=== PATIENT | male | born 1960 | race Caucasian/White ===

== ENCOUNTER 2018-03-16 17:04 | Inpatient (IN) | payer BC ==
[~2018-03-16] VITALS: Ht 175.3 cm; Wt 104.7 kg
--- NOTE | ~2018-03-16 | DS ---
PATIENT:JANI TREJO :64 MEDICAL RECORD: [id number] DISCHARGE SUMMARY ADMISSION DATE: 03/16/18 DISCHARGE DATE: 03/21/18 DATE OF ADMISSION: 03/16/2018 DATE OF DISCHARGE: 03/21/2018 ADMISSION DIAGNOSES: Severe hyponatremia, acute bronchitis, cough. DISCHARGE DIAGNOSIS: Severe hyponatremia. CONSULTS: Dr. Darrell Hilliard, nephrology. HOSPITAL COURSE: The patient was admitted, gradual correction of his hyponatremia, continues to improve. Medications adjusted that may have been contributory to his severe hyponatremia. The patient is feeling much better. He is anxious to go home. His sodium is improved from 115-125. He is discharged home in significantly improved condition. DISCHARGE MEDICATIONS: Per med rec, will follow up with Dr. Noyola next week. PHYSICAL EXAMINATION: VITAL SIGNS ON DISCHARGE: Temperature 97.5, blood pressure is 157/80, heart rate 69, respirations 20, O2 sats 96% on room air. GENERAL: Alert and oriented. Again, anxious to go home. HEART: Regular rate and rhythm. LUNGS: Clear. ABDOMEN: Soft. FOLLOWUP: Will follow up with Dr. Noyola next week. DISCHARGE INSTRUCTIONS: The patient will follow up with nephrology as scheduled. Agree with his input and appreciate nephrology. TRANSINT:[id number] Voice Confirmation ID: [id number] DOCUMENT ID: [id number] PRAMOD CERDA DO at 1030 CC: [id number] DICTATION DATE: 03/21/18 1259 WEAVER NARROW FABRICS: 03/22/18 0327 DIS IN 03/21/18 [address] [place] [address]
[2018-03-16] MEDS ORDERED: GLUCOPHAGE500 MG (17:09)
[2018-03-16] MEDS ORDERED: BLOOD PRESSURE PILL (17:09)
[2018-03-16 17:26] LABS: BASOPHILS 0.2 % (0-2); EOSINOPHILS 0.8 % (0-7); HEMATOCRIT 40.6 % (42.0-54.0); HEMOGLOBIN 15.2 g/dL (13.5-17.5); IMMATURE GRANULOCYTES 0.6 % (0-5); LYMPHOCYTES 22.5 % (15-50); MCH 30.1 pg (26.0-34.0); MCHC 37.4 g/dL (31.0-37.0); MCV 80.4 fL (80.0-100.0); MEAN PLATELET VOLUME 8.3 fL (7.4-10.4); MONOCYTES 7.4 % (2-11); NEUTROPHILS 68.5 % (40-80); PLATELET COUNT 226 10x3/uL (130-400); RBC 5.05 10x6/uL (4.20-6.10); RDW 12.8 % (11.5-14.5); WBC 9.7 10x3/uL (4.8-10.8)
[2018-03-16 17:44] LABS: ALBUMIN 3.9 g/dL (3.4-5.0); ALKALINE PHOSPHATASE 69 U/L (46-116); ALT (SGPT) 27 U/L (10-68); BILIRUBIN - TOTAL 0.22 mg/dL (0.2-1.3); CALCIUM 8.8 mg/dL (8.5-10.1); CARBON DIOXIDE 24.8 mmol/L (21.0-32.0); CREATININE - SERUM 0.8 mg/dL (0.6-1.3); GLUCOSE 114 mg/dL (74-106); POTASSIUM - SERUM 4.2 mmol/L (3.5-5.1); PROTEIN - SERUM 7.1 g/dL (6.4-8.2); UREA NITROGEN 11 mg/dL (7-18); eGFR NON AFRICAN AMERICAN > 90 mL/min (90-120)
[2018-03-16 17:45] LABS: CALC OSMOLALITY 232 mosm/kg (275-300)
[2018-03-16 17:46] LABS: SODIUM 115 mmol/L (136-145)
[2018-03-16 17:47] LABS: CHLORIDE - SERUM 82 mmol/L (98-107)
[2018-03-16] MEDS ORDERED: LISINOPRIL10 MG PO (21:18)
[2018-03-16] MEDS ORDERED: LISINOP/HCTZ TAB 10- (21:19)
[2018-03-16] MEDS ORDERED: PRANDIN1 MG PO (21:21)
[2018-03-16 21:24] VITALS: BP 125/66
[2018-03-16 22:52] VITALS: Ht 175.3 cm; Wt 104.7 kg
[2018-03-17] VITALS: BP 128/60
[2018-03-17 04:31] LABS: BASOPHILS 0.1 % (0-2); EOSINOPHILS 1.5 % (0-7); HEMATOCRIT 38.1 % (42.0-54.0); IMMATURE GRANULOCYTES 0.5 % (0-5); LYMPHOCYTES 32.2 % (15-50); MCH 29.7 pg (26.0-34.0); MCHC 36.7 g/dL (31.0-37.0); MCV 80.7 fL (80.0-100.0); MEAN PLATELET VOLUME 8.6 fL (7.4-10.4); NEUTROPHILS 55.7 % (40-80); PLATELET COUNT 235 10x3/uL (130-400); RBC 4.72 10x6/uL (4.20-6.10); RDW 12.9 % (11.5-14.5); WBC 8.2 10x3/uL (4.8-10.8)
[2018-03-17 04:44] VITALS: BP 155/74
[2018-03-17 04:57] LABS: ALBUMIN 3.3 g/dL (3.4-5.0); ALKALINE PHOSPHATASE 63 U/L (46-116); ALT (SGPT) 24 U/L (10-68); BILIRUBIN - TOTAL 0.22 mg/dL (0.2-1.3); CALCIUM 7.9 mg/dL (8.5-10.1); CARBON DIOXIDE 24.8 mmol/L (21.0-32.0); CREATININE - SERUM 0.7 mg/dL (0.6-1.3); GLUCOSE 93 mg/dL (74-106); POTASSIUM - SERUM 4.1 mmol/L (3.5-5.1); PROTEIN - SERUM 6.2 g/dL (6.4-8.2); eGFR NON AFRICAN AMERICAN > 90 mL/min (90-120)
[2018-03-17 05:12] LABS: CALC OSMOLALITY 234 mosm/kg (275-300); UREA NITROGEN 8 mg/dL (7-18)
[2018-03-17 05:14] LABS: CHLORIDE - SERUM 85 mmol/L (98-107); SODIUM 117 mmol/L (136-145)
[2018-03-17 07:30] VITALS: BP 145/76
[2018-03-17 11:00] VITALS: BP 162/86
[2018-03-17 14:19] LABS: CALCIUM 7.8 mg/dL (8.5-10.1); CREATININE - SERUM 0.7 mg/dL (0.6-1.3); POTASSIUM - SERUM 4.7 mmol/L (3.5-5.1); UREA NITROGEN 8 mg/dL (7-18); eGFR NON AFRICAN AMERICAN > 90 mL/min (90-120)
[2018-03-17 14:20] LABS: CALC OSMOLALITY 239 mosm/kg (275-300); GLUCOSE 225 mg/dL (74-106)
[2018-03-17 14:24] LABS: SODIUM 116 mmol/L (136-145)
[2018-03-17 14:25] LABS: CHLORIDE - SERUM 85 mmol/L (98-107)
[2018-03-17 15:00] VITALS: BP 147/80
[2018-03-17 17:08] LABS: CREATININE - URINE 51.4 mg/dL (30-125); PRO/CRE RATIO URINE 0.2 mg/g; PROTEIN - URINE 7.9 mg/dL (0.0-11.9)
[2018-03-17 17:25] LABS: APPEARANCE CLEAR (CLEAR); BILIRUBIN NEGATIVE (NEGATIVE); COLOR YELLOW (YELLOW); GLUCOSE NEGATIVE (NEGATIVE); KETONE NEGATIVE (NEGATIVE); NITRITE NEGATIVE (NEGATIVE); PROTEIN NEGATIVE (NEGATIVE); UROBILINOGEN NORMAL (NORMAL)
[2018-03-17 18:40] LABS: CALC OSMOLALITY 234 mosm/kg (275-300); CALCIUM 7.7 mg/dL (8.5-10.1); CARBON DIOXIDE 23.2 mmol/L (21.0-32.0); CHLORIDE - SERUM 87 mmol/L (98-107); CREATININE - SERUM 0.6 mg/dL (0.6-1.3); GLUCOSE 208 mg/dL (74-106); POTASSIUM - SERUM 4.1 mmol/L (3.5-5.1); UREA NITROGEN 8 mg/dL (7-18); eGFR NON AFRICAN AMERICAN > 90 mL/min (90-120)
[2018-03-17 18:42] LABS: SODIUM 114 mmol/L (136-145)
[2018-03-17 20:00] VITALS: BP 142/75
[2018-03-17 22:53] LABS: CALCIUM 7.8 mg/dL (8.5-10.1); CARBON DIOXIDE 26.2 mmol/L (21.0-32.0); CHLORIDE - SERUM 87 mmol/L (98-107); CREATININE - SERUM 0.6 mg/dL (0.6-1.3); POTASSIUM - SERUM 4.2 mmol/L (3.5-5.1); UREA NITROGEN 7 mg/dL (7-18); eGFR NON AFRICAN AMERICAN > 90 mL/min (90-120)
[2018-03-17 22:54] LABS: CALC OSMOLALITY 236 mosm/kg (275-300); GLUCOSE 126 mg/dL (74-106)
[2018-03-17 22:55] LABS: SODIUM 117 mmol/L (136-145)
[2018-03-18] VITALS: BP 144/70
[2018-03-18 05:05] LABS: BASOPHILS 0.1 % (0-2); EOSINOPHILS 1.5 % (0-7); HEMATOCRIT 40.9 % (42.0-54.0); HEMOGLOBIN 14.8 g/dL (13.5-17.5); IMMATURE GRANULOCYTES 0.5 % (0-5); LYMPHOCYTES 22.3 % (15-50); MCH 29.3 pg (26.0-34.0); MCHC 36.2 g/dL (31.0-37.0); MEAN PLATELET VOLUME 8.4 fL (7.4-10.4); NEUTROPHILS 66.6 % (40-80); PLATELET COUNT 238 10x3/uL (130-400); RBC 5.05 10x6/uL (4.20-6.10); RDW 12.9 % (11.5-14.5); WBC 8.1 10x3/uL (4.8-10.8)
[2018-03-18 05:49] LABS: ALBUMIN 3.7 g/dL (3.4-5.0); ALKALINE PHOSPHATASE 69 U/L (46-116); ALT (SGPT) 28 U/L (10-68); BILIRUBIN - TOTAL 0.39 mg/dL (0.2-1.3); CALC OSMOLALITY 236 mosm/kg (275-300); CALCIUM 8.3 mg/dL (8.5-10.1); CARBON DIOXIDE 26.4 mmol/L (21.0-32.0); CHLORIDE - SERUM 86 mmol/L (98-107); CREATININE - SERUM 0.7 mg/dL (0.6-1.3); GLUCOSE 125 mg/dL (74-106); POTASSIUM - SERUM 4.4 mmol/L (3.5-5.1); THYROID STIMULATING HORMONE 1.89 uIU/mL (0.36-3.74); UREA NITROGEN 6 mg/dL (7-18); eGFR NON AFRICAN AMERICAN > 90 mL/min (90-120)
[2018-03-18 05:54] LABS: SODIUM 118 mmol/L (136-145)
[2018-03-18 06:37] VITALS: BP 138/68
[2018-03-18 09:00] VITALS: BP 144/76
[2018-03-18 11:02] VITALS: BP 144/80
[2018-03-18 15:39] VITALS: BP 139/68
[2018-03-18 16:53] LABS: CALCIUM 8.3 mg/dL (8.5-10.1); CARBON DIOXIDE 25.8 mmol/L (21.0-32.0); CHLORIDE - SERUM 88 mmol/L (98-107); CREATININE - SERUM 0.6 mg/dL (0.6-1.3); GLUCOSE 108 mg/dL (74-106); POTASSIUM - SERUM 4.6 mmol/L (3.5-5.1); eGFR NON AFRICAN AMERICAN > 90 mL/min (90-120)
[2018-03-18 17:06] LABS: CALC OSMOLALITY 238 mosm/kg (275-300); UREA NITROGEN 8 mg/dL (7-18)
[2018-03-18 17:07] LABS: SODIUM 119 mmol/L (136-145)
[2018-03-18 20:00] VITALS: BP 139/83
[2018-03-19 04:00] VITALS: BP 142/82
[2018-03-19 05:22] LABS: BASOPHILS 0.3 % (0-2); EOSINOPHILS 1.4 % (0-7); HEMATOCRIT 38.7 % (42.0-54.0); HEMOGLOBIN 14.1 g/dL (13.5-17.5); IMMATURE GRANULOCYTES 0.6 % (0-5); LYMPHOCYTES 27.5 % (15-50); MCH 29.4 pg (26.0-34.0); MCHC 36.4 g/dL (31.0-37.0); MCV 80.6 fL (80.0-100.0); MEAN PLATELET VOLUME 8.5 fL (7.4-10.4); MONOCYTES 10.5 % (2-11); NEUTROPHILS 59.7 % (40-80); PLATELET COUNT 223 10x3/uL (130-400); RDW 12.8 % (11.5-14.5)
[2018-03-19 05:38] LABS: ALBUMIN 3.4 g/dL (3.4-5.0); ALKALINE PHOSPHATASE 64 U/L (46-116); ALT (SGPT) 26 U/L (10-68); BILIRUBIN - TOTAL 0.31 mg/dL (0.2-1.3); CALC OSMOLALITY 238 mosm/kg (275-300); CARBON DIOXIDE 26.4 mmol/L (21.0-32.0); CHLORIDE - SERUM 88 mmol/L (98-107); CREATININE - SERUM 0.6 mg/dL (0.6-1.3); GLUCOSE 112 mg/dL (74-106); POTASSIUM - SERUM 4.5 mmol/L (3.5-5.1); PROTEIN - SERUM 6.3 g/dL (6.4-8.2); UREA NITROGEN 7 mg/dL (7-18); eGFR NON AFRICAN AMERICAN > 90 mL/min (90-120)
[2018-03-19 05:46] LABS: SODIUM 119 mmol/L (136-145)
[2018-03-19 09:03] VITALS: BP 147/83
[2018-03-19 11:04] VITALS: BP 124/72
[2018-03-19 15:26] VITALS: BP 154/66
[2018-03-19 20:37] VITALS: BP 138/75
[2018-03-20 01:19] VITALS: BP 154/72
[2018-03-20 05:03] LABS: CALC OSMOLALITY 243 mosm/kg (275-300); CALCIUM 8.3 mg/dL (8.5-10.1); CARBON DIOXIDE 28.4 mmol/L (21.0-32.0); CHLORIDE - SERUM 91 mmol/L (98-107); CREATININE - SERUM 0.6 mg/dL (0.6-1.3); GLUCOSE 102 mg/dL (74-106); POTASSIUM - SERUM 4.2 mmol/L (3.5-5.1); SODIUM 122 mmol/L (136-145); UREA NITROGEN 7 mg/dL (7-18); eGFR NON AFRICAN AMERICAN > 90 mL/min (90-120)
[2018-03-20 05:38] VITALS: BP 137/83
[2018-03-20 12:12] VITALS: BP 163/93
[2018-03-20 12:22] LABS: CREATININE - URINE 125.9 mg/dL (30-125)
[2018-03-20 18:02] LABS: CALCIUM 7.9 mg/dL (8.5-10.1); CARBON DIOXIDE 26.2 mmol/L (21.0-32.0); CHLORIDE - SERUM 90 mmol/L (98-107); POTASSIUM - SERUM 4.5 mmol/L (3.5-5.1); SODIUM 123 mmol/L (136-145)
[2018-03-20 18:03] LABS: CALC OSMOLALITY 252 mosm/kg (275-300); CREATININE - SERUM 0.8 mg/dL (0.6-1.3); GLUCOSE 202 mg/dL (74-106); UREA NITROGEN 9 mg/dL (7-18); eGFR NON AFRICAN AMERICAN > 90 mL/min (90-120)
[2018-03-20 21:13] VITALS: BP 143/76
[2018-03-21 00:54] VITALS: BP 153/63
[2018-03-21 05:25] VITALS: BP 157/80
[2018-03-21 05:45] LABS: CALC OSMOLALITY 251 mosm/kg (275-300); CARBON DIOXIDE 23.9 mmol/L (21.0-32.0); CHLORIDE - SERUM 93 mmol/L (98-107); CREATININE - SERUM 0.7 mg/dL (0.6-1.3); POTASSIUM - SERUM 4.7 mmol/L (3.5-5.1); SODIUM 125 mmol/L (136-145); UREA NITROGEN 7 mg/dL (7-18); eGFR NON AFRICAN AMERICAN > 90 mL/min (90-120)
[2018-03-21 05:46] LABS: GLUCOSE 129 mg/dL (74-106)
[2018-03-21] MEDS ORDERED: LISINOPRIL10 MG PO (09:29)
[2018-03-21 12:36] VITALS: BP 170/86
== END 2018-03-21 15:09 | disposition home or self-care (01) | DRG 641 ==
LOC: D.ER 17:04 → D.M2 18:21
PROVIDERS: Family Medicine; Internal Medicine Nephrology
DX: E87.1 Hypo-osmolality and hyponatremia (principal); J20.9 Acute bronchitis, unspecified; E11.9 Type 2 diabetes mellitus without complications; I10 Essential (primary) hypertension; Z72.0 Tobacco use

== ENCOUNTER 2018-04-03 05:41 | Outpatient (CLI) | payer BC ==
[~2018-04-03] VITALS: Ht 175.3 cm; Wt 102.7 kg
[~2018-04-03 05:41] MED LIST: BLOOD PRESSURE PILL; GLUCOPHAGE500 MG; LISINOP/HCTZ TAB 10-; LISINOPRIL10 MG PO; PRANDIN1 MG PO
[2018-04-03 06:08] LABS: BASOPHILS 0.1 % (0-2); EOSINOPHILS 1.4 % (0-7); HEMATOCRIT 45.2 % (42.0-54.0); HEMOGLOBIN 15.5 g/dL (13.5-17.5); IMMATURE GRANULOCYTES 0.2 % (0-5); MCH 29.6 pg (26.0-34.0); MCHC 34.3 g/dL (31.0-37.0); MCV 86.4 fL (80.0-100.0); MEAN PLATELET VOLUME 8.6 fL (7.4-10.4); MONOCYTES 7.9 % (2-11); NEUTROPHILS 73.4 % (40-80); PLATELET COUNT 262 10x3/uL (130-400); RBC 5.23 10x6/uL (4.20-6.10); RDW 13.5 % (11.5-14.5); WBC 9.2 10x3/uL (4.8-10.8)
[2018-04-03 06:16] LABS: CALC OSMOLALITY 284 mosm/kg (275-300); CALCIUM 9.2 mg/dL (8.5-10.1); CARBON DIOXIDE 25.7 mmol/L (21.0-32.0); CHLORIDE - SERUM 104 mmol/L (98-107); CREATININE - SERUM 0.9 mg/dL (0.6-1.3); GLUCOSE 138 mg/dL (74-106); POTASSIUM - SERUM 4.3 mmol/L (3.5-5.1); SODIUM 141 mmol/L (136-145); UREA NITROGEN 18 mg/dL (7-18); eGFR NON AFRICAN AMERICAN > 90 mL/min (90-120)
[2018-04-03 06:23] LABS: APTT 28.5 SECONDS (22.8-39.4); INR 0.89 (0.85-1.17); PROTIME 11.7 SECONDS (11.6-15.0)
[2018-04-03 06:48] VITALS: Ht 175.3 cm; Wt 102.7 kg
== END 2018-04-03 11:00 | disposition home or self-care (01) ==
LOC: D.SP 05:41 → D.CT 08:00 → D.SP 11:00
PROVIDERS: Radiology Diagnostic Radiology
DX: C7A.8 Other malignant neuroendocrine tumors (principal); Z01.812 Encounter for preprocedural laboratory examination

== ENCOUNTER 2018-04-13 09:38 | Day surgery (SDC) | payer BC ==
[~2018-04-13] VITALS: Ht 175.3 cm; Wt 101.6 kg
[2018-04-13 10:18] LABS: HEMATOCRIT 42.2 % (42.0-54.0); HEMOGLOBIN 15.2 g/dL (13.5-17.5); MCH 29.6 pg (26.0-34.0); MCV 82.1 fL (80.0-100.0); MEAN PLATELET VOLUME 8.7 fL (7.4-10.4); RBC 5.14 10x6/uL (4.20-6.10); WBC 7.6 10x3/uL (4.8-10.8)
[2018-04-13 10:30] LABS: APTT 29.5 SECONDS (22.8-39.4); INR 0.95 (0.85-1.17); PROTIME 12.3 SECONDS (11.6-15.0)
[2018-04-13 10:33] LABS: CALC OSMOLALITY 251 mosm/kg (275-300); CALCIUM 9.2 mg/dL (8.5-10.1); CARBON DIOXIDE 25.8 mmol/L (21.0-32.0); CHLORIDE - SERUM 89 mmol/L (98-107); CREATININE - SERUM 0.8 mg/dL (0.6-1.3); GLUCOSE 141 mg/dL (74-106); POTASSIUM - SERUM 4.4 mmol/L (3.5-5.1); SODIUM 124 mmol/L (136-145); UREA NITROGEN 12 mg/dL (7-18); eGFR NON AFRICAN AMERICAN > 90 mL/min (90-120)
[2018-04-13] MEDS ORDERED: ZYLOPRIM100 MG PO (11:12)
[2018-04-13] MEDS ORDERED: PHENERGAN25 M1 PO (11:13)
[2018-04-13 11:25] VITALS: BP 143/94; Ht 175.3 cm; Wt 101.6 kg
[2018-04-13] MEDS ORDERED: HYDROCODON-ACE1 EAC7 PO (14:48)
== END 2018-04-13 16:33 | disposition home or self-care (01) ==
LOC: D.OPS 09:38 → D.PAN 12:00 → D.OPS 16:33
PROVIDERS: Anesthesiology
DX: C34.90 Malignant neoplasm of unspecified part of unspecified bronchus or lung (principal)

== ENCOUNTER 2019-02-23 10:27 | Inpatient (IN) | payer BC ==
[~2019-02-23] VITALS: Ht 175.3 cm; Wt 104.3 kg
[~2019-02-23 10:27] MED LIST changes: -GLUCOPHAGE500 MG; +GLUCOPHAGE500 MG PO; +HYDROCODON-ACE1 EAC7 PO; +PHENERGAN25 M1 PO; +ZYLOPRIM100 MG PO
--- NOTE | 2019-02-23 11:00 | NUR ---
PT ARRIVES TO ROOM AMBULATORY. SIGNIFICANT OTHER AT BEDSIDE. PT DENIES PRESENCE OF PAIN/N/V AT THIS TIME. PT STATES THAT HE IS BEING ADMITTED BECAUSE "MY SODIUM LEVEL IS LOW". PT ORIENTED TO ROOM. PT INFORMED OF NPO STATUS. PT VERBALIZES UNDERSTANDING. SIGNIFICANT OTHER VERBALIZES UNDERSTANDING OF NPO STATUS WELL. BED IS IN THE LOWEST POSITION. CALL LIGHT AND BEDSIDE TABLE ARE WITHIN REACH. SIDE RAILS X 2. PT REQUESTS TO WEAR OWN BED CLOTHES. WILL CONT TO MONITOR.
[2019-02-23 11:49] LABS: BASOPHILS 0.2 % (0-2); EOSINOPHILS 0.9 % (0-7); HEMATOCRIT 33.7 % (42.0-54.0); HEMOGLOBIN 12.5 g/dL (13.5-17.5); IMMATURE GRANULOCYTES 0.8 % (0-5); LYMPHOCYTES 6.5 % (15-50); MCH 30.3 pg (26.0-34.0); MCHC 37.1 g/dL (31.0-37.0); MCV 81.6 fL (80.0-100.0); MEAN PLATELET VOLUME 7.9 fL (7.4-10.4); MONOCYTES 12.1 % (2-11); NEUTROPHILS 79.5 % (40-80); RBC 4.13 10x6/uL (4.20-6.10); RDW 13.1 % (11.5-14.5); WBC 6.5 10x3/uL (4.8-10.8)
[2019-02-23 11:53] LABS: PLATELET COUNT 146 10x3/uL (130-400)
--- NOTE | 2019-02-23 12:00 | NUR ---
20G PIV TO LEFT FA X 1 ATTEMPT. PT TOLERATED WELL.
[2019-02-23 12:09] LABS: ALBUMIN 3.7 g/dL (3.4-5.0); ALKALINE PHOSPHATASE 77 U/L (46-116); ALT (SGPT) 28 U/L (10-68); BILIRUBIN - TOTAL 0.21 mg/dL (0.2-1.3); CARBON DIOXIDE 25.3 mmol/L (21.0-32.0); CREATININE - SERUM 0.8 mg/dL (0.6-1.3); POTASSIUM - SERUM 4.8 mmol/L (3.5-5.1); PROTEIN - SERUM 6.9 g/dL (6.4-8.2); UREA NITROGEN 14 mg/dL (7-18); eGFR NON AFRICAN AMERICAN > 90 mL/min (90-120)
[2019-02-23 12:13] VITALS: BMI 34.0
[2019-02-23 12:16] LABS: CALC OSMOLALITY 225 mosm/kg (275-300); GLUCOSE 71 mg/dL (74-106)
[2019-02-23 12:20] LABS: CHLORIDE - SERUM 79 mmol/L (98-107); SODIUM 112 mmol/L (136-145)
--- NOTE | 2019-02-23 12:23 | NUR ---
CRITICAL LAB VALUES RECD FROM [facility] IN LAB. PHONE CALL PLACED TO DR WALLACE TO NOTIFY.
--- NOTE | 2019-02-23 12:29 | NUR ---
NOTIFIED [facility] [place] OFFICE OF CRITICAL LAB VALUES. WILL AWAIT FURTHER INSTRUCITON
--- NOTE | 2019-02-23 14:06 | NUR ---
UPON ADMISSION PT VERBALIZED DIFFICULTY WITH URINATION "AT TIMES". PT INFORMED AT THAT TIME OF NEED FOR URINE SPECIMEN. PT VERBALIZED UNDERSTANDING. PT CONT WITHOUT VOID SINCE ADMISSION. BLADDER SCAN CONDUCTED. 436ML NOTED IN BLADDER PER BLADDER SCAN. PT STATES "LET ME STAND UP AND TRY AND PEE". PT TO NOTIFY NURSE IF SUCCESSFUL WITH URINATION.
--- NOTE | 2019-02-23 14:13 | NUR ---
SCDS TAKEN IN ROOM. PT TO ATTEMPT URINATION AT THIS TIME AND REQUESTS TO NOT PLACE SCDS RIGHT NOW.
[2019-02-23 15:57] LABS: APPEARANCE CLEAR (CLEAR); BILIRUBIN NEGATIVE (NEGATIVE); COLOR YELLOW (YELLOW); GLUCOSE NEGATIVE (NEGATIVE); KETONE NEGATIVE (NEGATIVE); NITRITE NEGATIVE (NEGATIVE); PROTEIN NEGATIVE (NEGATIVE); UROBILINOGEN NORMAL (NORMAL)
--- NOTE | 2019-02-23 16:02 | NUR ---
NEUROPSYCHIATRIST NOTIFIED OF NEED FOR HEART MONITOR FOR THIS PT. NEUROPSYCHIATRIST TO NOTIFY NURSE WHEN MONITOR IS READY
--- NOTE | 2019-02-23 16:50 | NUR ---
DR MONSIVAIS AT BEDSIDE. PER DR MONSIVAIS INFUSE SODIUM 3% BOLUS OVER 30 MINUTES.
--- NOTE | 2019-02-23 17:44 | NUR ---
ATTEMPT TO PLACE 16FR FREGOSO CATHETER UNSUCCESSSFUL. UNABLE TO ADVANCE PAST PROSTATE.
--- NOTE | 2019-02-23 18:44 | NUR ---
18FR KUDAY CATHETER INSERTED USING STERILE TECHNIQUE. 450ML CLEAR YELLOW URINE REMOVED FROM BLADDER. STAT LOCK IN PLACE. PT DENIES FURTHER NEEDS AT THIS TIME. BED IS IN THE LOWEST POSITION. CALL LIGHT AND BEDSIDE TABLE ARE WITHIN REACH. SIDE RAILS X 2. WILL CONT TO MONITOR.
--- NOTE | 2019-02-23 19:35 | NUR ---
PT SITTING UP ON SIDE OF BED WITHOUT DISTRESS, AOX4. FREGOSO IN PLACED DRAINING DARK YELLOW URINE. IV LEFT FA SL. REFUSES SCDS AT THIS TIME. DENIES PAIN OR NEEDS. CL IN REACH, WILL CTM
[2019-02-23 21:44] VITALS: BP 132/76
--- NOTE | 2019-02-24 00:30 | NUR ---
PT UNABLE TO SLEEP, REQUESTING SOMETHING TO HELP. STATES HE USUALY TAKES SOMINEX OR MELATONIN AT HOME. SPOKE WITH MELITA SHEEHAN APN, ORDERS FOR BENADRYL AND MELATONIN. SEE MAR. GAVE BENADRYL ORDERED. WILL CTM
[2019-02-24 01:11] VITALS: BP 140/77
[2019-02-24 05:18] VITALS: BP 143/73
[2019-02-24 07:32] LABS: ALBUMIN 3.8 g/dL (3.4-5.0); ALKALINE PHOSPHATASE 77 U/L (46-116); ALT (SGPT) 29 U/L (10-68); BILIRUBIN - TOTAL 0.44 mg/dL (0.2-1.3); CALCIUM 8.6 mg/dL (8.5-10.1); CARBON DIOXIDE 26.1 mmol/L (21.0-32.0); CREATININE - SERUM 0.8 mg/dL (0.6-1.3); POTASSIUM - SERUM 4.7 mmol/L (3.5-5.1); PROTEIN - SERUM 7.4 g/dL (6.4-8.2); UREA NITROGEN 14 mg/dL (7-18); eGFR NON AFRICAN AMERICAN > 90 mL/min (90-120)
[2019-02-24 07:38] LABS: CALC OSMOLALITY 231 mosm/kg (275-300); GLUCOSE 137 mg/dL (74-106)
[2019-02-24 07:40] LABS: BASOPHILS 0.1 % (0-2); CHLORIDE - SERUM 81 mmol/L (98-107); EOSINOPHILS 0.9 % (0-7); HEMATOCRIT 34.8 % (42.0-54.0); IMMATURE GRANULOCYTES 0.8 % (0-5); LYMPHOCYTES 6.4 % (15-50); MCH 30.9 pg (26.0-34.0); MCHC 37.4 g/dL (31.0-37.0); MCV 82.7 fL (80.0-100.0); MONOCYTES 10.1 % (2-11); NEUTROPHILS 81.7 % (40-80); PLATELET COUNT 154 10x3/uL (130-400); RBC 4.21 10x6/uL (4.20-6.10); RDW 13.2 % (11.5-14.5); SODIUM 113 mmol/L (136-145); WBC 7.9 10x3/uL (4.8-10.8)
--- NOTE | 2019-02-24 07:40 | NUR ---
GERALD FUENTES NOTIFIED OF CRITICAL SODIUM 113 AND CRITICAL CHLORIDE 81. NO NEW ORDERS AT THIS TIME.
--- NOTE | 2019-02-24 08:10 | NUR ---
ALERT AND ORIENTED. LUNGS CLEAR BILATERALLY IN ALL AGUSTIN. HEART SOUNDS S1 AND S2 HEARD IN ALL FEILDS. BOWEL SOUNDS ACTIVE X 4. SKIN INTACT WITHOUT REDNESS. DENIES PAIN. DENIES NEEDS. WILL CONTINUE TO MONITOR.
[2019-02-24 09:03] VITALS: BP 136/70
[2019-02-24 10:38] VITALS: BMI 33.9
--- NOTE | 2019-02-24 12:00 | NUR ---
STATES WANTS TO D/C INSULIN AND RESTART HOME ANTIDIABETS. GERALD FUENTES NOTIFIED.
[2019-02-24 12:58] VITALS: Ht 175.3 cm; Wt 104.3 kg
--- NOTE | 2019-02-24 13:40 | NUR ---
SITTING IN CHAIR AT BEDSIDE. DENIES PAIN. DENIES NEEDS. WILL CONTINUE TO MONITOR.
[2019-02-24 13:48] VITALS: BP 105/52
[2019-02-24 17:10] VITALS: BP 116/60
[2019-02-24 21:53] VITALS: BP 95/51
[2019-02-25 00:25] VITALS: BP 116/48
[2019-02-25 05:09] LABS: BASOPHILS 0.2 % (0-2); HEMATOCRIT 33.1 % (42.0-54.0); HEMOGLOBIN 12.1 g/dL (13.5-17.5); IMMATURE GRANULOCYTES 0.7 % (0-5); LYMPHOCYTES 5.4 % (15-50); MCH 30.4 pg (26.0-34.0); MCHC 36.6 g/dL (31.0-37.0); MCV 83.2 fL (80.0-100.0); MEAN PLATELET VOLUME 7.9 fL (7.4-10.4); MONOCYTES 15.1 % (2-11); NEUTROPHILS 77.6 % (40-80); PLATELET COUNT 143 10x3/uL (130-400); RBC 3.98 10x6/uL (4.20-6.10); RDW 13.1 % (11.5-14.5)
[2019-02-25 05:16] VITALS: BP 116/71
[2019-02-25 05:32] LABS: ALBUMIN 3.3 g/dL (3.4-5.0); ALKALINE PHOSPHATASE 68 U/L (46-116); ALT (SGPT) 24 U/L (10-68); BILIRUBIN - TOTAL 0.26 mg/dL (0.2-1.3); CALC OSMOLALITY 241 mosm/kg (275-300); CALCIUM 8.2 mg/dL (8.5-10.1); CARBON DIOXIDE 26.1 mmol/L (21.0-32.0); CHLORIDE - SERUM 88 mmol/L (98-107); CREATININE - SERUM 0.8 mg/dL (0.6-1.3); GLUCOSE 125 mg/dL (74-106); PROTEIN - SERUM 6.8 g/dL (6.4-8.2); UREA NITROGEN 11 mg/dL (7-18); eGFR NON AFRICAN AMERICAN > 90 mL/min (90-120)
[2019-02-25 06:17] LABS: SODIUM 120 mmol/L (136-145)
[2019-02-25 07:53] VITALS: BP 120/79
--- NOTE | 2019-02-25 08:13 | NUR ---
PT RESTING IN BED WITH EYES OPEN, AT THE BED SIDE. ALERT AND ORIENTED NO S/S OF DISTRESS. IV LOCATED TO LEFT FOREARM CURRENTLY SL. DENIES ANY NEEDS AT THIS TIME, WILL CONTINUE TO MONITOR.
--- NOTE | 2019-02-25 09:50 | NUR ---
FREGOSO CATHETER REMOVED PER DRS ORDERS.
[2019-02-25] MEDS ORDERED: FLOMAX0.4 MG PO (11:19)
[2019-02-25] MEDS ORDERED: THERMOTABS 1 GM1 GM PO (11:20)
--- NOTE | 2019-02-25 11:30 | NUR ---
PT VOIDED AFTER REMOVAL OF FREGOSO APPROX. 100 ML.
[2019-02-25 12:30] VITALS: BP 135/70
[2019-02-25 14:09] LABS: PSA - % FREE 38.5 % (()); PSA - TOTAL 5.2 ng/mL (0.0-4.0)
--- NOTE | 2019-02-25 14:29 | MORECARE ---
CASE MANAGEMENT DISCHARGE SUMMARY PATIENT: JANI TREJO UNIT: [id number] ADM DATE: 02/23/19 AGE: 59 : 64 SEX: M ROOM/BED: D.2219 AUTHOR: CASIMIRODOC PHYSICIAN: REFERRING PHYSICIAN: KATIE FINLEY MD DATE OF SERVICE: 02/25/19 Discharge Plan Patient Name: JANI TREJO Facility: [facility]:[place] : 1960 Planned Disposition: Home Anticipated Discharge Date: Discharge Date: Expected LOS: Initial Reviewer: [email or web address] Initial Review Date: 02/23/2019 Generated: 02/25/19 3:28 pm Comments DCP- Discharge Planning Updated by [email or web address]: Siobhan Collins on 02/25/19 1:[address] Patient Name: JANI TREJO Admission Status: Urgent Accout number: [id number] Admission Date: 02-23-2019 : 1960 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 CM educated patient on the CM role and verbal consent given by patient to complete assessment. Patient lives at home with his girlfriend where he is independent with his care. At discharge patient plans to return home and feels this is a safe discharge. His girlfriend will be his driver manager home. CM discussed availability of home health, rehab services, and medical equipment. Patient denied known discharge needs at this time. CM will continue to follow and will assist as needed with dc plans/needs. Milled Rubber Tender: Siobhan Collins DCPIA - Discharge Planning Initial Assessment Updated by [email or web address]: Siobhan Collins on 02/25/19 2:20 pm * Is the patient Alert and Oriented? Yes * How many steps to enter\exit or inside your home? * PCP YESSICAO * Pharmacy [facility] * Preadmission Environment Home with Family * ADLs Independent * Equipment None * List name and contact numbers for known caregivers / representatives who currently or will assist patient after discharge: BONG BANUELOS [phone] * Verbal permission to speak to the caregivers and representatives has been obtained from the patient. N/A * Community resources currently utilized None * Additional services required to return to the preadmission environment? No * Can the patient safely return to the preadmission environment? Yes * Has this patient been hospitalized within the prior 30 days at any hospital? No Patient Name: JANI TREJO Page [phone] at 1429 All edits/amendments must be made on the electronic document DICTATION DATE: 02/25/191427 CONSULTING MANAGER: DAVID 02/25/191427 RPT#: [id number] DC DATE: STATUS: ADM IN [facility] [address] [place] [address] END OF REPORT
--- NOTE | 2019-02-25 14:39 | NUR ---
AFTER VOIDING 300ML, BLADDER SCAN SHOWED 49ML PRESENT.
--- NOTE | 2019-02-25 16:40 | NUR ---
PT DISCHARGED HOME WITH .
--- NOTE | 2019-02-26 12:49 | MORECARE ---
CASE MANAGEMENT DISCHARGE SUMMARY PATIENT: JANI TREJO UNIT: [id number] ADM DATE: 02/23/19 AGE: 59 : 64 SEX: M ROOM/BED: D.2219 AUTHOR: CASIMIRODOC PHYSICIAN: REFERRING PHYSICIAN: KATIE FINLEY MD DATE OF SERVICE: 02/26/19 Discharge Plan Patient Name: JANI TREJO Facility: 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 CM educated patient on the CM role and verbal consent given by patient to complete assessment. Patient lives at home with his girlfriend where he is independent with his care. At discharge patient plans to return home and feels this is a safe discharge. His girlfriend will be his airport driver home. CM discussed availability of home health, rehab services, and medical equipment. Patient denied known discharge needs at this time. CM will continue to follow and will assist as needed with dc plans/needs. Dynamite Packing Machine Operator: Siobhan Collins DCPIA - Discharge Planning Initial Assessment Updated by [id number]: Siobhan Collins on 02/25/19 2:20 pm * Is the patient Alert and Oriented? Yes * How many steps to enter\exit or inside your home? * PCP FARO * Pharmacy [facility] [address] * Preadmission Environment Home with Family * ADLs Independent * Equipment None * List name and contact numbers for known caregivers / representatives who currently or will assist patient after discharge: BONG BANUELOS [phone] * Verbal permission to speak to the caregivers and representatives has been obtained from the patient. N/A * Community resources currently utilized None * Additional services required to return to the preadmission environment? No * Can the patient safely return to the preadmission environment? Yes * Has this patient been hospitalized within the prior 30 days at any hospital? No Last DP export: 02/25/19 1:29 p Patient Name: JANI TREJO Page [phone] at 1249 All edits/amendments must be made on the electronic document DICTATION DATE: 02/26/191247 CRANBERRY BOG SUPERVISOR: DAVID 02/26/198 RPT#: [id number] DC DATE:02/25/19 STATUS: DIS IN [facility] [address] [place] [address] END OF REPORT
== END 2019-02-25 16:40 | disposition home or self-care (01) | DRG 645 ==
LOC: D.MS 10:27 → D.SDCHOLD 10:27 → D.MS 10:31
PROVIDERS: Internal Medicine Nephrology; ADMIT Family Medicine; ATTEND Family Medicine
DX: E22.2 Syndrome of inappropriate secretion of antidiuretic hormone (principal); R11.2 Nausea with vomiting, unspecified; E86.0 Dehydration; E11.65 Type 2 diabetes mellitus with hyperglycemia; G47.33 Obstructive sleep apnea (adult) (pediatric); I10 Essential (primary) hypertension; R33.9 Retention of urine, unspecified; F50.9 Eating disorder, unspecified; J20.9 Acute bronchitis, unspecified; Z85.118 Personal history of other malignant neoplasm of bronchus and lung

== ENCOUNTER 2019-03-08 04:56 | Inpatient (IN) | payer BC ==
[~2019-03-08] VITALS: Ht 175.3 cm; Wt 100.3 kg
[~2019-03-08 04:56] MED LIST changes: +FLOMAX0.4 MG PO; +THERMOTABS 1 GM1 GM PO
[2019-03-08] MEDS ORDERED: LEXAPRO10 MG PO (05:03)
[2019-03-08] MEDS ORDERED: NAMENDA10 MG PO (05:03)
[2019-03-08] MEDS ORDERED: PRANDIN1 MG PO (05:15)
--- NOTE | 2019-03-08 05:16 | NUR ---
PT STATES HE HAS JUST "NOT BEEN FEELING WELL." C/O NAUSEA AND FATIGUE FOR LAST SEVERAL DAYS. STATES HX OF HYPONATREMIA AND RECENT CA OF LUNG.
[2019-03-08 05:19] LABS: BASOPHILS 0.1 % (0-2); EOSINOPHILS 1.1 % (0-7); HEMATOCRIT 36.7 % (42.0-54.0); HEMOGLOBIN 13.3 g/dL (13.5-17.5); IMMATURE GRANULOCYTES 0.8 % (0-5); LYMPHOCYTES 5.8 % (15-50); MCH 30.2 pg (26.0-34.0); MCHC 36.2 g/dL (31.0-37.0); MCV 83.4 fL (80.0-100.0); MONOCYTES 7.1 % (2-11); NEUTROPHILS 85.1 % (40-80); PLATELET COUNT 151 10x3/uL (130-400); RDW 13.2 % (11.5-14.5); WBC 7.9 10x3/uL (4.8-10.8)
[2019-03-08 05:39] LABS: APPEARANCE CLEAR (CLEAR); COLOR YELLOW (YELLOW); NITRITE NEGATIVE (NEGATIVE); PROTEIN NEGATIVE (NEGATIVE); SPECIFIC GRAVITY 1.015 (1.005-1.020)
[2019-03-08 05:40] LABS: ALBUMIN 3.8 g/dL (3.4-5.0); ALKALINE PHOSPHATASE 78 U/L (46-116); ALT (SGPT) 19 U/L (10-68); CALC OSMOLALITY 250 mosm/kg (275-300); CALCIUM 8.7 mg/dL (8.5-10.1); CARBON DIOXIDE 27.2 mmol/L (21.0-32.0); CHLORIDE - SERUM 88 mmol/L (98-107); CREATININE - SERUM 0.7 mg/dL (0.6-1.3); GLUCOSE 120 mg/dL (74-106); POTASSIUM - SERUM 4.3 mmol/L (3.5-5.1); PROTEIN - SERUM 7.1 g/dL (6.4-8.2); SODIUM 124 mmol/L (136-145); UREA NITROGEN 12 mg/dL (7-18); eGFR NON AFRICAN AMERICAN > 90 mL/min (90-120)
[2019-03-08 05:40] LABS: BILIRUBIN NEGATIVE (NEGATIVE); GLUCOSE NEGATIVE (NEGATIVE); KETONE SMALL mg/dL (NEGATIVE); UROBILINOGEN NORMAL (NORMAL)
[2019-03-08 07:07] VITALS: BP 139/85
--- NOTE | 2019-03-08 09:34 | NUR ---
NEW ADMIT FROM ER. PATIENT IS ON A FLUID RESTRICTION AND HE CAME IN SO WE CAN WATCH HIS SODIUM. CAME FROM ER THIS MORNING.
[2019-03-08 10:34] VITALS: BP 113/76; BMI 32.6
[2019-03-08 11:03] VITALS: BP 119/80
[2019-03-08 12:33] VITALS: Ht 175.3 cm; Wt 100.3 kg
[2019-03-08 15:37] VITALS: BP 153/88
--- NOTE | 2019-03-08 18:13 | NUR ---
PATIENT HAS BEEN DISCHARGED. IV REMOVED WITH CATHETER INTACT. ALL PATIENT BELONGINGS HAVE BEEN REMOVED FROM THE ROOM. DISCHARGE TEACHING DONE AND SIGNED.
--- NOTE | 2019-03-09 08:20 | MORECARE ---
CASE MANAGEMENT DISCHARGE SUMMARY PATIENT: JANI TREJO UNIT: [id number] ADM DATE: 03/08/19 AGE: 59 : 64 SEX: M ROOM/BED: D.2127 AUTHOR: ASHLIE KIRKPATRICK PHYSICIAN: REFERRING PHYSICIAN: MENG MONSIVAIS MD DATE OF SERVICE: 03/09/19 Discharge Plan Patient Name: JANI TREJO [facility] : 1960 Planned Disposition: Home Anticipated Discharge Date: 03/08/19 Discharge Date: 03/08/2019 Expected LOS: 1 Initial Reviewer: [email or web address] Initial Review Date: 03/09/2019 Generated: 03/09/19 9:20 am Patient Name: JANI TREJO Page [phone] at 0820 All edits/amendments must be made on the electronic document DICTATION DATE: 03/09/19819 VISION REHABILITATION THERAPIST: DAVID 03/09/19819 RPT#: [id number] DC DATE:03/08/19 STATUS: DIS IN [facility] [address] [facility] [place] [address] END OF REPORT
== END 2019-03-08 18:15 | disposition home or self-care (01) | DRG 644 ==
LOC: D.ER 04:56 → D.M2 06:03
PROVIDERS: Emergency Medicine; ADMIT Internal Medicine Nephrology; ATTEND Internal Medicine Nephrology
DX: E22.2 Syndrome of inappropriate secretion of antidiuretic hormone (principal); C34.90 Malignant neoplasm of unspecified part of unspecified bronchus or lung; D64.9 Anemia, unspecified; E11.9 Type 2 diabetes mellitus without complications; G47.33 Obstructive sleep apnea (adult) (pediatric); I10 Essential (primary) hypertension

== ENCOUNTER 2019-03-11 14:50 | Inpatient (IN) | payer BC ==
[2019-03-11] VITALS (7 sets, daily range): BP systolic 106–139; BP diastolic 61–96; BMI 32.5; BMI 34.0
[~2019-03-11] VITALS: Ht 175.3 cm; Wt 106.4 kg
[~2019-03-11 14:50] MED LIST changes: +LEXAPRO10 MG PO; +NAMENDA10 MG PO
[2019-03-11 15:14] LABS: HEMATOCRIT 35.2 % (42.0-54.0); HEMOGLOBIN 12.8 g/dL (13.5-17.5); LYMPHOCYTES 7.2 % (15-50); MCH 30.3 pg (26.0-34.0); MCHC 36.4 g/dL (31.0-37.0); MCV 83.4 fL (80.0-100.0); MEAN PLATELET VOLUME 7.2 fL (7.4-10.4); NEUTROPHILS 84.3 % (40-80); RBC 4.22 10x6/uL (4.20-6.10); RDW 13.8 % (11.5-14.5)
[2019-03-11 15:15] LABS: PLATELET COUNT 191 10x3/uL (130-400)
[2019-03-11 15:26] LABS: APTT 34.6 SECONDS (22.8-39.4); INR 1.03 (0.85-1.17)
[2019-03-11 15:55] LABS: ALBUMIN 4.1 g/dL (3.4-5.0); ALKALINE PHOSPHATASE 76 U/L (46-116); ALT (SGPT) 26 U/L (10-68); BILIRUBIN - TOTAL 0.54 mg/dL (0.2-1.3); CALCIUM 9.1 mg/dL (8.5-10.1); CARBON DIOXIDE 25.6 mmol/L (21.0-32.0); CKMB 5.5 U/L (0.0-3.6); CREATINE KINASE 567 UL (21-232); CREATININE - SERUM 0.9 mg/dL (0.6-1.3); GLUCOSE 98 mg/dL (74-106); MAGNESIUM - SERUM 1.6 mg/dL (1.8-2.4); POTASSIUM - SERUM 4.6 mmol/L (3.5-5.1); PROTEIN - SERUM 7.3 g/dL (6.4-8.2); THYROID STIMULATING HORMONE 2.18 uIU/mL (0.36-3.74); UREA NITROGEN 14 mg/dL (7-18); eGFR NON AFRICAN AMERICAN > 90 mL/min (90-120)
[2019-03-11 16:04] LABS: CALC OSMOLALITY 235 mosm/kg (275-300); TROPONIN-I < 0.017 ng/mL (0.000-0.060)
[2019-03-11 16:09] LABS: CHLORIDE - SERUM 82 mmol/L (98-107); SODIUM 116 mmol/L (136-145)
--- NOTE | 2019-03-11 17:12 | NUR ---
PER DR. ROSARIO, PT IN NPO STATUS. NPO STATUS EXPLAINED TO PT ET PT EXPRESSES ACCURATE UNDERSTANDING ET AGREEMENT.
--- NOTE | 2019-03-11 18:06 | NUR ---
3% SODIUM CL STOP TIME @ 9156.
[2019-03-11 18:34] LABS: UDS - AMPHET NEGATIVE QUAL (NEGATIVE); UDS - BARB NEGATIVE QUAL (NEGATIVE); UDS - BENZO NEGATIVE QUAL (NEGATIVE); UDS - COCAINE NEGATIVE QUAL (NEGATIVE); UDS - OPIATE NEGATIVE QUAL (NEGATIVE); UDS - PCP NEGATIVE QUAL (NEGATIVE); UDS - THC POSITIVE QUAL (NEGATIVE)
[2019-03-11 18:43] LABS: APPEARANCE CLEAR (CLEAR); BILIRUBIN NEGATIVE (NEGATIVE); COLOR YELLOW (YELLOW); GLUCOSE NEGATIVE (NEGATIVE); KETONE LARGE mg/dL (NEGATIVE); NITRITE NEGATIVE (NEGATIVE); PROTEIN NEGATIVE (NEGATIVE); UROBILINOGEN NORMAL (NORMAL)
--- NOTE | 2019-03-11 20:04 | NUR ---
PT ARRIVED ON UNIT VIA WHEELCHAIR ACCOMPANIED BY ER STAFF. AMBULATED FROM CHAIR TO BED WITH STEADY GAIT. AT BEDSIDE. PT HAS SLIGHTLY SLURRED SPEECH AND IS ORIENTED TO TIME PERSON AND SITUATION BUT THOUGHT HE WAS IN [place]. PATIENT REORIENTED EASILY. AND PATIENT GAVE HISTORY AND SHIFT ASSESSMENT COMPLETED AT THIS TIME. 3 SIDERAILS UP, CALL LIGHT IN REACH, ALL ICU FALL PRECAUTIONS IN PLACE. VSS CPOC
--- NOTE | 2019-03-11 21:45 | NUR ---
SCDS PLACED AT THIS TIME, PATIENT REQUESTING MEDICATION FOR PAIN AND STATING HE IS HUNGRY AND HASN'T HAD AN APPETITE IN AWHILE. PATIENT ON DIABETIC DIET SEE EMAR FOR MED ADMINISTRATION. VSS CPOC
--- NOTE | 2019-03-11 23:12 | NUR ---
REASSESSMENT COMPLETED SEE FLOWSHEET
[2019-03-12] VITALS (11 sets, daily range): BP systolic 102–139; BP diastolic 56–89; BMI 34.7
--- NOTE | 2019-03-12 02:40 | NUR ---
REASSESSMENT COMPLETED SEE FLOWSHEET PATIENT IS RESTLESS AND AGITATED DUE TO PAIN IN HEAD AND LEGS, HE IS STATING HE IS FEELING LIKE ALL OF HIS MUSCLES ARE TENSED UP. LEGS PAIN IS A PULLING AND TUGGING SENSATION THAT DOESN'T STOP, PT REQUESTED SCDS TO BE REMOVED BC HE "JUST CANT HANDLE ALL THE STUFF ON HIM" AWAKE ALERT AND ORIENTED TO TIME PLACE AND SITUATION AT THIS TIME. PATIENT REQUESTING PRN MEDICATION FOR PAIN AND NAUSEA, HAS DRY NON PRODUCTIVE HACKING COUGH. GAGS AT TIMES WHILE COUGHING. PATIENT HAS MET FLUID RESTRICTION OF 800CC AT THIS TIME, PT EDUCATION DONE AT THIS TIME REGARDING FLUID RESTRICTION ORDERS, ALL QUESTIONS ANSWERED VSS CPOC
[2019-03-12 04:12] LABS: BASOPHILS 0 % (0-2); EOSINOPHILS 0.8 % (0-7); HEMATOCRIT 33.7 % (42.0-54.0); HEMOGLOBIN 12.1 g/dL (13.5-17.5); IMMATURE GRANULOCYTES 0.4 % (0-5); LYMPHOCYTES 9.4 % (15-50); MCHC 35.9 g/dL (31.0-37.0); MCV 83.6 fL (80.0-100.0); MEAN PLATELET VOLUME 7.6 fL (7.4-10.4); MONOCYTES 11.4 % (2-11); PLATELET COUNT 163 10x3/uL (130-400); RBC 4.03 10x6/uL (4.20-6.10); RDW 13.1 % (11.5-14.5)
[2019-03-12 04:18] LABS: WBC 5.2 10x3/uL (4.8-10.8)
[2019-03-12 04:36] LABS: % SATURATION 9 % (15-55); IRON 36 ug/dl (35-150); TOTAL IRON BIND CAPACITY 366 ug/dl (260-445); UNSAT IRON BIND CAPACITY 330 ug/dl (150-375)
[2019-03-12 05:10] LABS: ALBUMIN 3.8 g/dL (3.4-5.0); ALKALINE PHOSPHATASE 70 U/L (46-116); ALT (SGPT) 24 U/L (10-68); BILIRUBIN - TOTAL 0.52 mg/dL (0.2-1.3); CALCIUM 8.5 mg/dL (8.5-10.1); CARBON DIOXIDE 23.9 mmol/L (21.0-32.0); CREATININE - SERUM 0.8 mg/dL (0.6-1.3); FERRITIN 103 ng/mL (3-244); GLUCOSE 96 mg/dL (74-106); MAGNESIUM - SERUM 1.6 mg/dL (1.8-2.4); POTASSIUM - SERUM 4.2 mmol/L (3.5-5.1); PRO BNP 36 pg/mL (0-125); PROTEIN - SERUM 7.1 g/dL (6.4-8.2); UREA NITROGEN 15 mg/dL (7-18); eGFR NON AFRICAN AMERICAN > 90 mL/min (90-120)
[2019-03-12 05:12] LABS: CALC OSMOLALITY 235 mosm/kg (275-300); CHLORIDE - SERUM 84 mmol/L (98-107); SODIUM 116 mmol/L (136-145)
--- NOTE | 2019-03-12 08:00 | NUR ---
PT RESTING QUIETLY, AWAKENS EASILY. VSS.
[2019-03-12 13:57] LABS: CALCIUM 8.1 mg/dL (8.5-10.1); CARBON DIOXIDE 26.2 mmol/L (21.0-32.0); CREATININE - SERUM 0.7 mg/dL (0.6-1.3); GLUCOSE 131 mg/dL (74-106); POTASSIUM - SERUM 4.2 mmol/L (3.5-5.1); UREA NITROGEN 15 mg/dL (7-18); eGFR NON AFRICAN AMERICAN > 90 mL/min (90-120)
[2019-03-12 13:58] LABS: CALC OSMOLALITY 239 mosm/kg (275-300)
[2019-03-12 13:59] LABS: CHLORIDE - SERUM 84 mmol/L (98-107); SODIUM 117 mmol/L (136-145)
--- NOTE | 2019-03-12 18:17 | MORECARE ---
CASE MANAGEMENT DISCHARGE SUMMARY PATIENT: JANI TREJO UNIT: [id number] ADM DATE: 03/11/19 AGE: 59 : 64 SEX: M ROOM/BED: D.2218 AUTHOR: ASHLIE KIRKPATRICK PHYSICIAN: REFERRING PHYSICIAN: MENG MONSIVAIS MD DATE OF SERVICE: 03/12/19 Discharge Plan Patient Name: JANI TREJO Facility: [facility]:[place] : 1960 Planned Disposition: Home Anticipated Discharge Date: Discharge Date: Expected LOS: Initial Reviewer: [email or web address] Initial Review Date: 03/12/2019 Generated: 03/12/19 7:16 pm Patient Name: JANI TREJO Page [phone] at 1817 All edits/amendments must be made on the electronic document DICTATION DATE: 03/12/191815 ABATTOIR MANAGER: DAVID 03/12/191815 RPT#: [id number] DC DATE: STATUS: ADM IN [facility] [address] [place] [address] END OF REPORT
--- NOTE | 2019-03-12 18:24 | MORECARE ---
CASE MANAGEMENT DISCHARGE SUMMARY PATIENT: JANI TREJO UNIT: [id number] ADM DATE: 03/11/19 AGE: 59 : 64 SEX: M ROOM/BED: D.2218 AUTHOR: CASIMIRO,DOC PHYSICIAN: REFERRING PHYSICIAN: MENG MONSIVAIS MD DATE OF SERVICE: 03/12/19 Discharge Plan Patient Name: JANI TREJO Facility: [facility]:[place] : 1960 Planned Disposition: Home Anticipated Discharge Date: Discharge Date: Expected LOS: Initial Reviewer: [email or web address] Initial Review Date: 03/12/2019 Generated: 03/12/19 7:23 pm Comments DCP- Discharge Planning Updated by [email or web address]: Pam Castro on 03/12/19 5:[address] Patient Name: JANI TREJO Admission Status: ER Accout number: [id number] Admission Date: 03-11-2019 : 1960 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 Patient lives at home with his significant other Orin where he is independent with his care and plans to return there upon discharge. Patient feels this would be a safe discharge. CM discussed availability / needs of home health and medical equipment. Patient denies any discharge needs at this time. Patient states he will have his family drive him home upon discharge. CM will continue to follow and assist as needed with discharge planning / needs. Last Putter Away: Pam Castro DCPIA - Discharge Planning Initial Assessment Updated by [email or web address]: Pam Castro on 03/12/19 6:19 pm * Is the patient Alert and Oriented? Yes * How many steps to enter\exit or inside your home? * PCP RODRIGO * Pharmacy [facility] * Preadmission Environment Home with Family * ADLs Independent * List name and contact numbers for known caregivers / representatives who currently or will assist patient after discharge: ORIN VIN - SIGN [facility]- [phone] * Verbal permission to speak to the caregivers and representatives has been obtained from the patient. Yes * Additional services required to return to the preadmission environment? No * Can the patient safely return to the preadmission environment? Yes * Has this patient been hospitalized within the prior 30 days at any hospital? No Last DP export: 03/12/19 5:17 p Patient Name: JANI TREJO Page [phone] at 1824 All edits/amendments must be made on the electronic document DICTATION DATE: 03/12/191822 GAUNTLET PAIRER: DAVID 03/12/191822 RPT#: [id number] DC DATE: STATUS: ADM IN [facility] [address] [place] [address] END OF REPORT
[2019-03-12 19:54] LABS: CALC OSMOLALITY 238 mosm/kg (275-300); CALCIUM 8.3 mg/dL (8.5-10.1); CARBON DIOXIDE 24.8 mmol/L (21.0-32.0); CHLORIDE - SERUM 86 mmol/L (98-107); CREATININE - SERUM 0.8 mg/dL (0.6-1.3); GLUCOSE 106 mg/dL (74-106); POTASSIUM - SERUM 4.1 mmol/L (3.5-5.1); UREA NITROGEN 14 mg/dL (7-18); eGFR NON AFRICAN AMERICAN > 90 mL/min (90-120)
[2019-03-12 20:01] LABS: SODIUM 118 mmol/L (136-145)
[2019-03-13] VITALS: BP 123/65
[2019-03-13 01:58] LABS: BASOPHILS 0 % (0-2); EOSINOPHILS 1.5 % (0-7); HEMATOCRIT 32.9 % (42.0-54.0); HEMOGLOBIN 11.5 g/dL (13.5-17.5); IMMATURE GRANULOCYTES 0.6 % (0-5); MCH 29.5 pg (26.0-34.0); MCV 84.4 fL (80.0-100.0); MEAN PLATELET VOLUME 7.9 fL (7.4-10.4); MONOCYTES 14.5 % (2-11); NEUTROPHILS 70.4 % (40-80); PLATELET COUNT 171 10x3/uL (130-400); RDW 13.3 % (11.5-14.5)
[2019-03-13 01:59] LABS: WBC 3.4 10x3/uL (4.8-10.8)
[2019-03-13 02:13] LABS: ALBUMIN 3.4 g/dL (3.4-5.0); ALKALINE PHOSPHATASE 67 U/L (46-116); ALT (SGPT) 23 U/L (10-68); BILIRUBIN - TOTAL 0.34 mg/dL (0.2-1.3); CALCIUM 8.2 mg/dL (8.5-10.1); CARBON DIOXIDE 26.3 mmol/L (21.0-32.0); CHLORIDE - SERUM 87 mmol/L (98-107); CREATININE - SERUM 0.7 mg/dL (0.6-1.3); GLUCOSE 94 mg/dL (74-106); MAGNESIUM - SERUM 1.8 mg/dL (1.8-2.4); PHOSPHOROUS 2.6 mg/dL (2.5-4.9); POTASSIUM - SERUM 4.3 mmol/L (3.5-5.1); PROTEIN - SERUM 6.5 g/dL (6.4-8.2); UREA NITROGEN 14 mg/dL (7-18); eGFR NON AFRICAN AMERICAN > 90 mL/min (90-120)
[2019-03-13 02:14] LABS: CALC OSMOLALITY 242 mosm/kg (275-300); SODIUM 120 mmol/L (136-145)
[2019-03-13 04:00] VITALS: BP 102/59
--- NOTE | 2019-03-13 08:45 | NUR ---
PATIENT IN BED WITH IV INTACT. NO COMPLAINTS. SITTING UP EATING AT THIS TIME. FAMILY AT BEDSIDE. CALL LIGHT WITHIN REACH.
[2019-03-13 08:46] VITALS: BP 102/62
[2019-03-13 11:38] VITALS: Ht 175.3 cm; Wt 106.4 kg
[2019-03-13 13:54] VITALS: BP 101/64
[2019-03-13 16:47] VITALS: BP 98/61
--- NOTE | 2019-03-13 18:45 | NUR ---
SPOKE WITH ANISHA ABOUT TELE MONITOR FOR LILLI. EXPLAINED HAD BEEN ORDERED FOR HIM. SAID SHE ONLY HAD A FEW LEFT AT THIS TIME AND HAD A LOT OF PCU BEDS OPEN. TO CALL BACK THIS EVENING.
--- NOTE | 2019-03-13 18:50 | NUR ---
PATIENT IN BED WITH IV INTACT AT THIS TIME. NO COMPLAINTS. CALL LIGHT WITHIN REACH.
[2019-03-13 19:46] VITALS: BP 91/45
--- NOTE | 2019-03-13 20:00 | NUR ---
ALERT RESTING IN BED, DENIES PAIN OR NEEDS AT THIS TIME, SEE SHIFT ASSESSMENT CALL LIGHT IN REACH
[2019-03-14] VITALS: BP 101/59
[2019-03-14 04:00] VITALS: BP 109/57
[2019-03-14 06:20] LABS: BASOPHILS 0 % (0-2); EOSINOPHILS 1.1 % (0-7); HEMATOCRIT 34.3 % (42.0-54.0); HEMOGLOBIN 11.7 g/dL (13.5-17.5); IMMATURE GRANULOCYTES 0.3 % (0-5); LYMPHOCYTES 8.3 % (15-50); MCH 29.1 pg (26.0-34.0); MCHC 34.1 g/dL (31.0-37.0); MCV 85.3 fL (80.0-100.0); MEAN PLATELET VOLUME 7.8 fL (7.4-10.4); MONOCYTES 14.3 % (2-11); PLATELET COUNT 181 10x3/uL (130-400); RBC 4.02 10x6/uL (4.20-6.10); RDW 13.3 % (11.5-14.5); WBC 3.5 10x3/uL (4.8-10.8)
[2019-03-14 06:38] LABS: ALBUMIN 3.3 g/dL (3.4-5.0); ALKALINE PHOSPHATASE 63 U/L (46-116); ALT (SGPT) 20 U/L (10-68); BILIRUBIN - TOTAL 0.19 mg/dL (0.2-1.3); CALC OSMOLALITY 250 mosm/kg (275-300); CALCIUM 8.5 mg/dL (8.5-10.1); CARBON DIOXIDE 26.4 mmol/L (21.0-32.0); CHLORIDE - SERUM 91 mmol/L (98-107); CREATININE - SERUM 0.7 mg/dL (0.6-1.3); GLUCOSE 104 mg/dL (74-106); MAGNESIUM - SERUM 1.8 mg/dL (1.8-2.4); PHOSPHOROUS 2.3 mg/dL (2.5-4.9); POTASSIUM - SERUM 4.4 mmol/L (3.5-5.1); PROTEIN - SERUM 6.2 g/dL (6.4-8.2); SODIUM 124 mmol/L (136-145); UREA NITROGEN 14 mg/dL (7-18); eGFR NON AFRICAN AMERICAN > 90 mL/min (90-120)
--- NOTE | 2019-03-14 08:45 | NUR ---
PATIENT IN BED WITH IV INTACT. NO COMPLAINTS. FAMILY AT BEDSIDE. CALL LIGHT WITHIN REACH.
[2019-03-14 09:06] VITALS: BP 118/74
--- NOTE | 2019-03-14 12:27 | NUR ---
PATIENT SITTING UP IN CHAIR WITH NO COMPLAINTS. WAITING FOR PHYSICIAN. IV INTACT. CALL LIGHT WITHIN REACH.
[2019-03-14 12:52] VITALS: BP 102/63
[2019-03-14] MEDS ORDERED: THERMOTABS 1 GM1 GM PO (13:55)
--- NOTE | 2019-03-14 14:47 | NUR ---
SPOKE WITH DR MONSIVAIS RE FLUID RESTRICTION FOR D/C. HE REC 1000CC/DAY.
--- NOTE | 2019-03-14 14:58 | NUR ---
PATIENT RECIEVED DC INSTRUCTIONS. VERBALIZED UNDERSTANDING. IV REMOVED WITH CATH TIP INTACT. EXPLAINED TO [facility] MAKER MED AT [facility]. VERBALIZED UNDERSTANDING. AWAITING FAMILY FOR DC. CALL LIGHT WITHIN REACH.
--- NOTE | 2019-03-14 15:12 | NUR ---
PATIENT AMBULATED OUT OF HOSPITAL WITH FAMILY AND PERSONAL BELONGINGS TO PRIVATE VEHICLE. REFUSED WC AT THIS TIME.
--- NOTE | 2019-03-15 08:48 | MORECARE ---
CASE MANAGEMENT DISCHARGE SUMMARY PATIENT: JANI TREJO UNIT: [id number] ADM DATE: 03/11/19 AGE: 59 : 64 SEX: M ROOM/BED: D.2218 AUTHOR: CASIMIRO,DOC PHYSICIAN: REFERRING PHYSICIAN: MENG MONSIVAIS MD DATE OF SERVICE: 03/15/19 Discharge Plan Patient Name: JANI TREJO Facility: [facility]:[place] : 1960 Planned Disposition: Home Anticipated Discharge Date: Discharge Date: 03/14/2019 Expected LOS: Initial Reviewer: [email or web address] Initial Review Date: 03/12/2019 Generated: 03/15/19 9:48 am Comments DCP- Discharge Planning Updated by [email or web address]: Pam Castro on 03/12/19 5:[address] Patient Name: JANI TREJO Admission Status: ER Accout number: [id number] Admission Date: 03-11-2019 : 1960 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 Patient lives at home with his significant other Orin where he is independent with his care and plans to return there upon discharge. Patient feels this would be a safe discharge. CM discussed availability / needs of home health and medical equipment. Patient denies any discharge needs at this time. Patient states he will have his family drive him home upon discharge. CM will continue to follow and assist as needed with discharge planning / needs. Lead Trainer: Pam Castro DCPIA - Discharge Planning Initial Assessment Updated by [email or web address]: Pam Castro on 03/12/19 6:19 pm * Is the patient Alert and Oriented? Yes * How many steps to enter\exit or inside your home? * PCP YESSICAO * Pharmacy [facility] * Preadmission Environment Home with Family * ADLs Independent * List name and contact numbers for known caregivers / representatives who currently or will assist patient after discharge: ORIN VIN - SIGN [facility]- [phone] * Verbal permission to speak to the caregivers and representatives has been obtained from the patient. Yes * Additional services required to return to the preadmission environment? No * Can the patient safely return to the preadmission environment? Yes * Has this patient been hospitalized within the prior 30 days at any hospital? No Last DP export: 03/12/19 5:24 p Patient Name: JANI TREJO Page [phone] at 0848 All edits/amendments must be made on the electronic document DICTATION DATE: 03/15/19846 OIL BURNER JOURNEYMAN: DM 03/15/19 0847 RPT#: [id number] DC DATE:03/14/19 STATUS: DIS IN [facility] [address] [place] [address] END OF REPORT
== END 2019-03-14 15:30 | disposition home or self-care (01) | DRG 643 ==
LOC: D.ER 14:50 → D.MS 17:23 → D.ICU 17:23 → D.MS 03-12 16:38
PROVIDERS: Family Medicine; ADMIT Internal Medicine Nephrology; ATTEND Internal Medicine Nephrology
DX: E22.2 Syndrome of inappropriate secretion of antidiuretic hormone (principal); G93.41 Metabolic encephalopathy; C34.90 Malignant neoplasm of unspecified part of unspecified bronchus or lung; E83.42 Hypomagnesemia; E11.9 Type 2 diabetes mellitus without complications; I10 Essential (primary) hypertension

== ENCOUNTER → 2019-05-27 11:26 | Outpatient (CLI) | payer BC ==
[2019-03-13 11:38] VITALS: BMI 34.7
== END | disposition home or self-care (01) ==
LOC: D.RAD 11:26
PROVIDERS: ATTEND Internal Medicine Hematology & Oncology
DX: C34.91 Malignant neoplasm of unspecified part of right bronchus or lung (principal)

== ENCOUNTER 2019-06-01 06:20 | Outpatient (CLI) | payer BC ==
[~2019-06-01] VITALS: Ht 175.3 cm; Wt 95.9 kg
--- NOTE | 2019-06-01 07:16 | NUR ---
NO ORDERS. CALLED SPECIALS TO INFORM BUT NO ANSWER. WILL RECALL
[2019-06-01 07:25] VITALS: Ht 175.3 cm; Wt 95.9 kg
[2019-06-01 07:50] LABS: BASOPHILS 0 % (0-2); EOSINOPHILS 0 % (0-7); HEMATOCRIT 41.9 % (42.0-54.0); HEMOGLOBIN 13.7 g/dL (13.5-17.5); IMMATURE GRANULOCYTES 0.6 % (0-5); LYMPHOCYTES 3.9 % (15-50); MCHC 32.7 g/dL (31.0-37.0); MCV 91.7 fL (80.0-100.0); MEAN PLATELET VOLUME 9.8 fL (7.4-10.4); MONOCYTES 5.5 % (2-11); RBC 4.57 10x6/uL (4.20-6.10); RDW 18.9 % (11.5-14.5)
[2019-06-01 07:51] LABS: PLATELET COUNT 89 10x3/uL (130-400)
[2019-06-01 08:09] LABS: INR 1.13 (0.85-1.17)
[2019-06-01 08:12] LABS: CALC OSMOLALITY 296 mosm/kg (275-300); CALCIUM 8.8 mg/dL (8.5-10.1); CARBON DIOXIDE 29.6 mmol/L (21.0-32.0); CHLORIDE - SERUM 108 mmol/L (98-107); CREATININE - SERUM 0.8 mg/dL (0.6-1.3); POTASSIUM - SERUM 3.6 mmol/L (3.5-5.1); SODIUM 143 mmol/L (136-145); UREA NITROGEN 38 mg/dL (7-18); eGFR NON AFRICAN AMERICAN > 90 mL/min (90-120)
[2019-06-01 08:14] LABS: GLUCOSE 159 mg/dL (74-106)
[2019-06-01 08:30] LABS: PLATELET ESTIMATE DECREASED
[2019-06-01] MEDS ORDERED: THERMOTABS 1 GM1 GM PO (14:33)
--- NOTE | 2019-06-01 14:46 | NUR ---
1052 PARACENTESIS PROCEDURE CANCELLED PER RADIOLOGIST. CT SCAN WAS COMPLETED. IV DC'D. CATHETER TIP INTACT. NO BLEEDING AT SITE AFTER HOLDING PRESSURE. BANDAID APPLIED. VSS. PT READY TO BE DISCHARGED HOME SOON.
[2019-06-02] MEDS ORDERED: HYDROCODON-ACE1 EAC7 PO (11:03)
== END 2019-06-01 11:04 | disposition home or self-care (01) ==
LOC: D.CT 06:20
PROVIDERS: Radiology Vascular & Interventional Radiology; ATTEND Internal Medicine Hematology & Oncology
DX: C34.91 Malignant neoplasm of unspecified part of right bronchus or lung (principal); R18.8 Other ascites; E11.9 Type 2 diabetes mellitus without complications; I10 Essential (primary) hypertension; E78.5 Hyperlipidemia, unspecified; Z72.0 Tobacco use; Z53.9 Procedure and treatment not carried out, unspecified reason

== ENCOUNTER 2019-06-02 07:22 | Day surgery (SDC) | payer BC ==
[~2019-06-02] VITALS: Ht 175.3 cm; Wt 95.7 kg
[2019-06-02 09:35] VITALS: BP 135/78; Ht 175.3 cm; Wt 95.7 kg
[2019-06-02] MEDS ORDERED: HYDROCODON-ACE1 EAC7 PO (11:03)
== END 2019-06-02 12:35 | disposition home or self-care (01) ==
LOC: D.OPS 07:22 → D.PAN 09:45 → D.OPS 09:45 → D.PAN 10:00 → D.OPS 12:35
PROVIDERS: ATTEND Surgery
DX: C34.90 Malignant neoplasm of unspecified part of unspecified bronchus or lung (principal); E11.9 Type 2 diabetes mellitus without complications; Z95.828 Presence of other vascular implants and grafts

== ENCOUNTER → 2019-06-04 09:35 | Outpatient (CLI) | payer BC ==
[2019-06-02 09:35] VITALS: BMI 31.2
[~2019-06-04 09:35] MED LIST changes: +ELIQUIS5 MG PO
== END | disposition home or self-care (01) ==
LOC: D.US 09:35
PROVIDERS: ATTEND Internal Medicine Hematology & Oncology
DX: R60.0 Localized edema (principal); E11.9 Type 2 diabetes mellitus without complications; I10 Essential (primary) hypertension; Z72.0 Tobacco use; E78.5 Hyperlipidemia, unspecified

== ENCOUNTER 2019-06-07 11:41 | Outpatient (CLI) | payer BC ==
[~2019-06-07] VITALS: Ht 175.3 cm; Wt 103.6 kg
[~2019-06-07 11:41] MED LIST changes: -ELIQUIS5 MG PO
[2019-06-07] MEDS ORDERED: ELIQUIS5 MG PO (13:28)
[2019-06-07 13:30] VITALS: BP 133/77; Ht 175.3 cm; Wt 103.6 kg
--- NOTE | 2019-06-07 14:44 | NUR ---
PT RESTING COMFORTABLE AT THIS TIME, NAD NOTED, WILL CONITNUE TO MONITOR.
--- NOTE | 2019-06-07 15:23 | NUR ---
PER DR. SAUCEDO, PORT NOT FLUSHED W/ HEPARIN. ONLY FLUSHED W/ NS.
--- NOTE | 2019-06-07 15:27 | NUR ---
DC INSTRUCTIONS GIVEN TO PT/FAMILY. STATE UNDERSTANDING. DE-ACCESSED PORT PER DR. SAUCEDO'S ORDER.
== END 2019-06-07 15:30 | disposition home or self-care (01) ==
LOC: D.OPS 11:41
PROVIDERS: ATTEND Internal Medicine Hematology & Oncology
DX: D69.49 Other primary thrombocytopenia (principal)

== ENCOUNTER 2019-06-10 16:10 | Inpatient (IN) | payer BC ==
[~2019-06-10] VITALS: Ht 175.3 cm; Wt 81.6 kg
--- NOTE | ~2019-06-10 | HEMODYNAMI ---
PATIENT:JANI TREJO MEDICAL RECORD: [id number] : 64 LOCATION:[facility] D.2211 ADMISSION DATE: 06/10/19 Generatedon:06/11/201912:03 Patient name: JANI TREJO Patient #: [id number] SSN: : 1960 Date of study: 06/11/2019 Page: Of Hemodynamic Procedure Report Patient Data Patient Demographics Procedure consent was obtained First Name: JANI Gender: Male Last Name: NEIL : 1960 Middle Initial: VITALY Age: 59 year(s) Patient #: [id number] Race: Unknown Additional ID: [id number] Contact details [address]: [address] [place] [address] State: [place] City: [place] Zip code: [address] Past Medical History Allergies: No known allergies Admission Admission Data Admission Date: 06/10/2019 Admission Time: 16:10 Room #: D.2211 Height (in.): 69 BSA: 1.98 (m2) Height (cm.): 175.26 BMI: 26.58 (kg/m2) Weight (lbs.): 180 Weight (kg.): 81.65 Procedure Procedure Types Cath Procedure Peripheral Cath Diagnostic Procedure Absorption Operator Peripheral Procedures Venography IVC/SVC Inferior Venacava Filter Procedure Description Procedure Date Procedure Date: 06/11/2019 Procedure Start Time: 11:40 Procedure Staff Name Function Billy Ahuja MD Performing Physician Yolanda Tan RT Deodorizer Operator Madonna Perez RN Nurse Live Duval RT Scrub Procedure Data Cath Procedure Fluoroscopy Diagnostic fluoroscopy Total fluoroscopy Time: 1.1 time: 1.1 min min Contrast Material Contrast Material Type Amount (ml) Isovue 300 20 Procedure Medications Medication Administration Route Dosage Ancef (1Gm/50ml NS) I.V.P.B 1 g Heparin Flush Bag 3 bags (1000units/500ml NS) Lidocaine 1% added to field 20 Versed I.V. 1 mg Fentanyl I.V. 50 mcg Hemodynamics Rest BSA: 1.98 (m2) O2 Consumption: Estimated: 255.07 (ml/min) O2 Consumption indexed : Estimated:128.82 (ml/min/m) Heart Rate: 98 (bpm) Snapshots Pre Cath Intra NCS Post Cath Vital Signs Time Heart Resp SPO2 etCO2 NIBP (mmHg) Rhythm Pain Sedation Rate (ipm) (%) (mmHg) Status Level (bpm) 11:28:08 95 15 99 30.2 150/93(124) NSR 0 (11) 8(A) , No pain 11:32:18 79 21 99 31.7 139/93(111) NSR 0 (11) 8(A) , No pain 11:36:28 94 19 98 30.2 147/90(118) NSR 0 (11) 8(A) , No pain 11:40:39 96 10 99 30.2 150/93(119) NSR 0 (11) 8(A) , No pain 11:44:51 98 21 98 32.4 146/92(115) NSR 0 (11) 8(A) , No pain 11:49:01 100 24 96 31.7 143/90(109) NSR 0 (11) 8(A) , No pain 11:53:11 101 21 97 33.2 137/88(107) NSR 0 (11) 8(A) , No pain 11:57:31 102 24 97 30.2 128/88(98) NSR 0 (11) 8(A) , No pain 12:01:31 0 No Cuff NSR 0 (11) 8(A) , No pain Medications Time Medication Route Dose Verified Delivered Reason Notes Effe ctiveness by by 11:25:12 Ancef (1Gm/50ml I.V.P.B 1 g Billy Peacock used for NS) Leigha Perez RN procedure 11:34:26 Heparin Flush 3 Billy Cervantes used for Bag bags Leigha Ahuja procedure (1000units/500ml MD NIÑO NS) 11:35:19 Lidocaine 1% added 20ml Billy Cervantes used for to vial Leigha Ahuja procedure field MD NIÑO 11:42:56 Versed I.V. 1 mg Billy Peacock for Leigha Perez RN sedation 11:43:09 Fentanyl I.V. 50 Billy Fontanezi for mcg Leigha Perez RN sedation MD Procedure Log Time Note 10:58:47 Patient Height : 69 inches 10:58:51 Patient Weight : 180 lbs 10:59:34 Use device set IR Diagnostic 11:00:08 Micropuncture VSI 4FR kit opened to sterile field. 11:00:10 BENTSON 145cm wire (X34200) opened to sterile field. 11:00:11 TUBING Contrast Injection High Pressure (FSU450L) opened to sterile field. 11:00:12 Tegaderm 4 x 4 (1626W) opened to sterile field. 11:00:13 Sterile Angiographic Pack opened to sterile field. 11:00:14 Bag Decanter (2002S) opened to sterile field. 11:00:15 ACIST Manifold (51403) opened to sterile field. 11:00:16 ACIST Hand Control (23800) opened to sterile field. 11:00:18 ACIST Syringe (79604) opened to sterile field. 11:10:01 Time tracking: Regular hours (M-F 7:00 - 5:00) 11:10:19 Plan of Care:Hemodynamics will remain stable., Cardiac rhythm will remain stable., Comfort level will be maintained., Respiratory function will remain adequate., Patient/ family verbilizes understanding of procedure., Procedure tolerated without complication., Recovers from procedure without complications.. 11:10:27 Patient received from Med/Surg to IR Alert and oriented. Tansferred to table in Supine position. 11:10:32 Signed procedure consent form obtained from patient. 11:10:34 Correct patient and procedure confirmed by team. 11:10:39 H&P Date Dictated: 06/11/2019 Within 30 days and on chart.. 11:10:42 Pre-procedure instructions explained to patient. 11:10:43 Pre-op teaching completed and patient verbalized understanding. 11:10:49 Family in waiting room. 11:10:52 Patient NPO since Midnight. 11:11:02 Patient allergic to No known allergies 11:11:07 Is the patient allergic to Iodine/contrast media? No. 11:11:10 Is patient on blood thinner?No 11:15:28 Patient diabetic? No. 11:15:33 - 11:15:34 ----Pre-sedation anethsthesia assessment.---- 11:15:38 Previous problem with sedation/anesthesia? No ? 11:15:41 Snore? Yes 11:15:43 Sleep apnea? Yes 11:15:45 Deviated septum? No 11:15:48 Opens mouth fully? Yes 11:15:50 Sticks out tongue? Yes 11:15:59 Airway obstruction? Yes previous lung ca 11:16:02 Dentures? No ? 11:16:13 IV patent on arrival in left hand with D5/.45%NaCl at [facility]. 11:16:27 Right groin area was prepped with chlora-prep and draped in sterile fashion 11:16:30 - 11:25:12 Ancef (1Gm/50ml NS) 1 g I.V.P.B was administered by Madonna Perez RN; used for procedure; Verbal order read back and verified. 11:27:03 ECG and BP/O2 sat monitors applied to patient. 11:27:04 Vital chart was started 11:27:05 Baseline sample Acquired. 11:27:06 Full Disclosure recording started 11:27:07 - 11:27:20 Fire Safety Assessment: A--An alcohol-based skin anteseptic being used preoperatively., C--Open oxygen or nitrous oxide is being used. 11:34:26 Heparin Flush Bag (1000units/500ml NS) 3 bags was administered by Billy Ahuja MD; used for procedure; Verbal order read back and verified. 11:35:19 Lidocaine 1% 20ml vial added to field was administered by Billy oliveira MD; used for procedure; Verbal order read back and verified. 11:39:45 - 11:39:46 Physician arrived 11:39:48 --------ALL STOP TIME OUT------ 11:39:50 Final Timeout: patient, procedure, and site verified with staff and physician. All members of the team are in agreement. 11:40:13 Procedure started. 11:40:20 Local anesthetic to right femoral vein with Lidocaine 1% by Billy Ahuja MD.INITIAL ACCESS ONLY 11:42:56 Versed 1 mg I.V. was administered by Madonna Perez RN; for sedation; Verbal order read back and verified. 11:43:09 Fentanyl 50 mcg I.V. was administered by Madonna Perez RN; for sedation; Verbal order read back and verified. 11:45:15 FILTER Tech LP Vena Cava ([id number]) opened to sterile field. 11:59:55 Vena Tech LP IVC filter was placed below renal veins. 12:00:02 Procedure ended.(Physican Out) 12:00:07 Fluoroscopy time 01.10 minutes. 12:00:22 Contrast amount:Isovue 300 20ml. 12:00:53 Report given to Med/Surg. 12:03:36 Vital chart was stopped Device Usage Item Name Manufacture Quantity Catalog Hospital Part Current Minima l Lot# / Number Charge Number Stock Stock Serial# Code Micropuncture VSI VASCULAR 1 [id number] 700509 [id number] 5 VSI 4FR kit SOLUTIONS BENTSON 145cm [facility] 1 [id number] [id number] 5 wire ([id number]) TUBING Merit 1 [id number] 941475 489741 934627 5 Contrast Medical Injection High Pressure ([id number]) Tegaderm 4 x 3M 1 1626W [id number] 112157 316927 5 4 (1626W) Sterile Cardinal 1 [id number] 199658 777100 5 Angiographic Health Pack Bag Decanter Microtek 1 2001S 092904 07204 280161 5 (2001S) Medical Inc. ACIST Acist 1 86499 917303 891329 063205 5 Manifold Medical (51286) Systems Inc ACIST Hand Acist 1 08296 373695 315715 516195 5 Control Medical (55742) Systems Inc ACIST Syringe Acist 1 51134 548130 650498 823211 20 (38030) Medical Systems Inc FILTER Tech B. Lorenzana 1 [id number] 501963 783935 854515 5 [id number] LP Vena Cava (3962533) Signature Audit [place] Time Signature Unsigned Intra-Procedure 06/11/2019 Yolanda Tan 12:03:32 PM RT(R) [facility] [address] [place] [address]
[~2019-06-10 16:10] MED LIST changes: +ELIQUIS5 MG PO
[2019-06-10 17:09] LABS: BASOPHILS 0.5 % (0-2); EOSINOPHILS 0.9 % (0-7); HEMATOCRIT 30.2 % (42.0-54.0); HEMOGLOBIN 9.8 g/dL (13.5-17.5); IMMATURE GRANULOCYTES 1.4 % (0-5); LYMPHOCYTES 16.2 % (15-50); MCH 29.9 pg (26.0-34.0); MCHC 32.5 g/dL (31.0-37.0); MCV 92.1 fL (80.0-100.0); MEAN PLATELET VOLUME 9.4 fL (7.4-10.4); MONOCYTES 0.5 % (2-11); NEUTROPHILS 80.5 % (40-80); RBC 3.28 10x6/uL (4.20-6.10); RDW 18.8 % (11.5-14.5); WBC 2.2 10x3/uL (4.8-10.8)
[2019-06-10 17:11] LABS: PLATELET COUNT 13 10x3/uL (130-400)
[2019-06-10 17:19] VITALS: BP 141/81; BMI 26.6
[2019-06-10 17:20] LABS: APTT 39.8 SECONDS (22.8-39.4); INR 1.06 (0.85-1.17); PROTIME 13.3 SECONDS (11.6-15.0)
[2019-06-10 17:24] LABS: CALC OSMOLALITY 280 mosm/kg (275-300); CALCIUM 8.4 mg/dL (8.5-10.1); CARBON DIOXIDE 24.4 mmol/L (21.0-32.0); CHLORIDE - SERUM 105 mmol/L (98-107); CREATININE - SERUM 0.6 mg/dL (0.6-1.3); GLUCOSE 116 mg/dL (74-106); POTASSIUM - SERUM 3.4 mmol/L (3.5-5.1); SODIUM 139 mmol/L (136-145); UREA NITROGEN 17 mg/dL (7-18); eGFR NON AFRICAN AMERICAN > 90 mL/min (90-120)
[2019-06-10 17:30] LABS: ALBUMIN 1.9 g/dL (3.4-5.0); ALKALINE PHOSPHATASE 219 U/L (46-116); ALT (SGPT) 237 U/L (10-68); BILIRUBIN - TOTAL 3.06 mg/dL (0.2-1.3); PROTEIN - SERUM 4.9 g/dL (6.4-8.2)
[2019-06-10 18:16] LABS: PLATELET ESTIMATE DECREASED
--- NOTE | 2019-06-10 18:52 | NUR ---
PATIENT ADMITTED WITH DVT AND LOW PLATELETS. UNABLE TO ACCESS PORT X4 ATTEMPTS BETWEEN THIS NURSE AND CHARGE NURSE. PERIPHERAL IV STARTED TO LEFT HAND X 1 STICK 22G.
--- NOTE | 2019-06-10 19:00 | NUR ---
BEDSIDE REPORT RECEIVED AND CARE OF PT ASSUMED. PT LYING IN SUPINE POSITION WITH EYES CLOSED. IV TO RIGHT AC PATENT WITH LR INFUSING AT 100 ML/HR; KCL RIDER 10 MEQ INFUSING AT 50 ML/HR. TELEMETRY IN PLACE AND READING SR AT THIS ASSESSMENT. WILL MONITOR FOR NEEDS.
[2019-06-10 20:00] VITALS: BP 129/73
--- NOTE | 2019-06-10 20:39 | NUR ---
HS MEDICATIONS GIVEN TO INCLUDE ZOFRAN IVP FOR NAUSEA.
--- NOTE | 2019-06-10 21:20 | NUR ---
GAVE DEMERAL IVP PER PRN ORDER, PER REQUEST FOR ABDOMINAL PAIN.
[2019-06-11] VITALS (11 sets, daily range): BP systolic 136–153; BP diastolic 67–91; Ht 175.3 cm; Wt 81.6 kg
--- NOTE | 2019-06-11 00:35 | NUR ---
I have reviewed this patient and I concur with the Shift Assessment completed by the Licensed Practical Nurse today this shift.
--- NOTE | 2019-06-11 04:20 | NUR ---
SITTING ON SIDE OF BED AT CHGE OF SHIFT WALKING ROUNDS.DENIES ANY DISCOMFORT AT PRESENT.WILL CONTINUE TO MONITOR FOR ANY CHGES AND FOLLOW CURRENT PLAN OF CARE.
--- NOTE | 2019-06-11 04:30 | NUR ---
0110) REQUESTING PAIN MED NO ORDERED FOR PAIN Salo SHEEHAN CALLED KERENEGUATELMA TO ABOVE NEW ORDERS REC'D.
--- NOTE | 2019-06-11 04:33 | NUR ---
0200) 1ST UNIT PLATELETS RASEN TOURE.
--- NOTE | 2019-06-11 04:35 | NUR ---
0255) 1ST UNIT COMPLETE.2ND UNIT HUNG SULEIMAN WELL NO SIGNS OR SYMPTOMS OF REJECTING PLATELET TRANSFUSION WILL CONTINUE TO MONITOR FOR ANY CHGES AND FOLLOW CURRENT PLAN OF CARE.
[2019-06-11 06:32] LABS: HEMATOCRIT 26.5 % (42.0-54.0); HEMOGLOBIN 8.5 g/dL (13.5-17.5); MCH 29.7 pg (26.0-34.0); MCHC 32.1 g/dL (31.0-37.0); MCV 92.7 fL (80.0-100.0); MEAN PLATELET VOLUME 9.4 fL (7.4-10.4); RBC 2.86 10x6/uL (4.20-6.10); RDW 18.9 % (11.5-14.5)
[2019-06-11 06:36] LABS: PLATELET COUNT 90 10x3/uL (130-400); WBC 1.5 10x3/uL (4.8-10.8)
[2019-06-11 06:44] LABS: ALKALINE PHOSPHATASE 218 U/L (46-116); ALT (SGPT) 195 U/L (10-68); BILIRUBIN - TOTAL 4.49 mg/dL (0.2-1.3); CALC OSMOLALITY 287 mosm/kg (275-300); CALCIUM 8.5 mg/dL (8.5-10.1); CARBON DIOXIDE 26.6 mmol/L (21.0-32.0); CHLORIDE - SERUM 109 mmol/L (98-107); CREATININE - SERUM 0.6 mg/dL (0.6-1.3); GLUCOSE 130 mg/dL (74-106); POTASSIUM - SERUM 3.7 mmol/L (3.5-5.1); PROTEIN - SERUM 5.2 g/dL (6.4-8.2); SODIUM 143 mmol/L (136-145); UREA NITROGEN 16 mg/dL (7-18); eGFR NON AFRICAN AMERICAN > 90 mL/min (90-120)
--- NOTE | 2019-06-11 07:26 | NUR ---
PT IS RESTING IN BED WITH EYES OPEN. RESPIRATIONS ARE EVEN AND UNLABORED. NEUTROPENIC PRECUATIONS PLACED PER LAB RESULTS. PT AND PT SO EDUCATED ON NEUTROPENIC PRECAUTIONS. PT AND PT SO VERBALIZE UNDERSTANDING. PT IS AAO X 4. 4+ PITTING EDEMA NOTED TO BILATERAL FEET. PEDAL PULSES ARE PALP AND CAP REFILL < 3 SEC BILATERAL. PT DENIES PRESENCE OF NUMBNESS/TINGLING. BS HYPOACTIVE X 4. PT STATES LAST BM "ABOUT 4 DAYS AGO". ABD IS DISTENDED AND FIRM. PT DENIES PRESENCE OF TENDERNESS. PT DENIES FLATULENCE. PT DENIES PRESENCE OF PAON/N/V/DYSPNEA. BED IS IN THE LOWEST POSITION. CALL LIGHT AND BEDSIDE TABLE ARE WITHIN REACH. SIDE RAILS X 2. PT DENIES FURTHER NEEDS. WILL CONT TO MONITOR.
--- NOTE | 2019-06-11 09:07 | NUR ---
CONSENTS FOR IR PROCEDURES SIGNED BY SIGNIFICANT OTHER AT PT REQUEST. SIGNED CONSENTS PLACED IN PT CHART.
[2019-06-11 09:08] LABS: LYMPHOCYTES 12 % (15-50); NEUTROPHILS 88 % (40-80); PLATELET ESTIMATE DECREASED
[2019-06-11 09:09] LABS: ANISOCYTOSIS OCC; HYPOCHROMASIA OCC
--- NOTE | 2019-06-11 11:07 | NUR ---
PT TRANSPORTED FROM ROOM VIA BED BY IR STAFF FOR PROCEDURE. NEUTROPENIC PRECUATIONS ARE IN PLACE.
--- NOTE | 2019-06-11 12:35 | NUR ---
PT IN ROOM RESTING IN BED WITH EYES OPEN. PT IS AAO X 4. RESPIRATIONS ARE EVEN AND UNLABORED. DRESSING TO RIGHT GROIN IS CDI. PT EDUCATED ON LAYING FLAT AND BEDREST X 2 HOURS. FAMILY IS AT BEDSIDE. SEE VITALS FLOWSHEET. BED IS IN THE LOWEST POSITION. CALL LIGHT AND BEDSIDE TABLE ARE WITHIN REACH. SIDE RAILS X 2. PT DENIES FURTHER NEEDS. WILL CONT TO MONITOR.
[2019-06-11 15:19] LABS: APPEARANCE CLEAR (CLEAR); BILIRUBIN NEGATIVE (NEGATIVE); COLOR YELLOW (YELLOW); GLUCOSE NEGATIVE (NEGATIVE); KETONE NEGATIVE (NEGATIVE); NITRITE NEGATIVE (NEGATIVE); PROTEIN NEGATIVE (NEGATIVE); UROBILINOGEN NORMAL (NORMAL)
--- NOTE | 2019-06-11 20:00 | NUR ---
A&O X 4, SUPINE IN BED, REPORTS PAIN OF 8/10 TO RIGHT GROIN. PULSES PALPABLE. NO S/SX OF BLEEDING. VS STABLE, DENIES FURTHER NEEDS, WILL CONTINUE TO MONITOR.
[2019-06-12] VITALS: BP 134/65
--- NOTE | 2019-06-12 01:59 | NUR ---
I have reviewed this patient and I concur with the Shift Assessment completed by the Licensed Practical Nurse today this shift.
[2019-06-12 04:00] VITALS: BP 152/87
[2019-06-12 06:34] LABS: BASOPHILS 0 % (0-2); EOSINOPHILS 0 % (0-7); HEMATOCRIT 25.7 % (42.0-54.0); HEMOGLOBIN 8.3 g/dL (13.5-17.5); LYMPHOCYTES 24.2 % (15-50); MCH 29.6 pg (26.0-34.0); MCHC 32.3 g/dL (31.0-37.0); MCV 91.8 fL (80.0-100.0); MEAN PLATELET VOLUME 9.3 fL (7.4-10.4); NEUTROPHILS 72.8 % (40-80); RDW 18.1 % (11.5-14.5)
[2019-06-12 06:55] LABS: PLATELET COUNT 50 10x3/uL (130-400)
[2019-06-12 07:21] LABS: ALBUMIN 2.1 g/dL (3.4-5.0); ALKALINE PHOSPHATASE 214 U/L (46-116); ALT (SGPT) 167 U/L (10-68); BILIRUBIN - TOTAL 2.97 mg/dL (0.2-1.3); CALC OSMOLALITY 276 mosm/kg (275-300); CALCIUM 8.4 mg/dL (8.5-10.1); CARBON DIOXIDE 24.8 mmol/L (21.0-32.0); CHLORIDE - SERUM 105 mmol/L (98-107); CREATININE - SERUM 0.5 mg/dL (0.6-1.3); GLUCOSE 101 mg/dL (74-106); POTASSIUM - SERUM 3.8 mmol/L (3.5-5.1); PROTEIN - SERUM 5.2 g/dL (6.4-8.2); SODIUM 138 mmol/L (136-145); UREA NITROGEN 14 mg/dL (7-18); eGFR NON AFRICAN AMERICAN > 90 mL/min (90-120)
--- NOTE | 2019-06-12 07:45 | NUR ---
PT RESTING IN BED WITH EYES OPEN, AT THE BEDSIDE. ALERT AND ORIENTED. BREATHING EVEN AND NONLABORED, NO S/S OF DISTRESS. DENIES NEEDS AT THIS TIME, WILL CONT TO MONITOR.
[2019-06-12 09:01] VITALS: BP 147/85
[2019-06-12 13:02] VITALS: BP 146/73
[2019-06-12 16:49] VITALS: BP 132/69
--- NOTE | 2019-06-12 19:28 | NUR ---
PATIENT RESTING IN BED WITH NO S/S OF DISTRESS AND DENIES NEEDS AT THIS TIME. BED IN LOWEST POSITION AND CALL LIGHT WITHIN REACH. ENCOURAGED THE PATIENT TO CALL IF HE HAS NEEDS. WILL CONTINUE TO MONITOR.
[2019-06-12 20:00] VITALS: BP 107/56
[2019-06-13] VITALS: BP 132/69
[2019-06-13 04:00] VITALS: BP 130/61
[2019-06-13 06:54] LABS: HEMATOCRIT 24.7 % (42.0-54.0); HEMOGLOBIN 8.1 g/dL (13.5-17.5); MCH 29.7 pg (26.0-34.0); MCHC 32.8 g/dL (31.0-37.0); MCV 90.5 fL (80.0-100.0); MEAN PLATELET VOLUME 9.7 fL (7.4-10.4); RBC 2.73 10x6/uL (4.20-6.10); RDW 17.6 % (11.5-14.5)
[2019-06-13 06:57] LABS: PLATELET COUNT 27 10x3/uL (130-400); WBC 0.6 10x3/uL (4.8-10.8)
[2019-06-13 07:16] LABS: LYMPHOCYTES 45 % (15-50); MONOCYTES 12 % (2-11); NEUTROPHILS 40 % (40-80); PLATELET ESTIMATE DECREASED
[2019-06-13 07:17] LABS: ALBUMIN 1.9 g/dL (3.4-5.0); ALKALINE PHOSPHATASE 204 U/L (46-116); ALT (SGPT) 142 U/L (10-68); BILIRUBIN - TOTAL 2.71 mg/dL (0.2-1.3); CALC OSMOLALITY 266 mosm/kg (275-300); CALCIUM 7.8 mg/dL (8.5-10.1); CARBON DIOXIDE 22.5 mmol/L (21.0-32.0); CHLORIDE - SERUM 102 mmol/L (98-107); CREATININE - SERUM 0.5 mg/dL (0.6-1.3); GLUCOSE 104 mg/dL (74-106); POTASSIUM - SERUM 3.6 mmol/L (3.5-5.1); SODIUM 134 mmol/L (136-145); UREA NITROGEN 11 mg/dL (7-18); eGFR NON AFRICAN AMERICAN > 90 mL/min (90-120)
--- NOTE | 2019-06-13 07:38 | NUR ---
PT IS AWAKE, ALPOERT AND ORIENTED THIS AM. PATIENT DENIES PAIN AT THIS TIME. BED IS IN LOW POSITION AND CALL LIGHT IS IN REACH. PATIENT DENIES ANY PAIN AT THIS TIME. IV TO THE LEFT AHND IS NOTED WITH NORMAL SLAINE RUNNING AT 30. NO O2 IS NOTED. DRESSSIGS ARE CLEAN DRY AND INTACT. PT DENIES ANY ADDITIONAL NEEDS AT THIS TIME
[2019-06-13 08:42] VITALS: BP 158/83
[2019-06-13 13:44] VITALS: BP 134/81
[2019-06-13 17:48] VITALS: BP 134/79
[2019-06-13 19:30] VITALS: BP 134/68
--- NOTE | 2019-06-13 19:55 | NUR ---
SITTING UP ON SIDE OF BED. ALERT AND ORIENTED X4. RESP EVEN AND NONLABORED. RATES PAIN IN ABD 10 AND REQUESTS PAIN MED. MEDICATED WITH MORPHINE ORDERED. ABD IS DISTENDED AND FIRM. SKIN IS JAUNDICED. C/O CONSTIPATION. NS @ 30 MLHR INFUSING IN LT HAND. STERISTRIPS X4 NOTED TO LT CHEST WALL MEDIPORT THAT IS NEW AND NOT ACCESSED. AMBULATORY. BRUISES NOTED TO BUE. EDEMA NOTED TO BLE. SR ELEVATED X2. CL IN REACH.
[2019-06-14 00:30] VITALS: BP 157/79
--- NOTE | 2019-06-14 01:51 | NUR ---
HAS RESTED WELL THIS SHIFT BUT STILL HASNT HAD A BM. CL IN REACH.
--- NOTE | 2019-06-14 02:22 | NUR ---
MEDICATED WITH MORPHINE FOR C/O ABD PAIN. CL IN REACH.
[2019-06-14 05:01] VITALS: BP 161/80
[2019-06-14 06:21] LABS: ALBUMIN 2.1 g/dL (3.4-5.0); ALKALINE PHOSPHATASE 215 U/L (46-116); ALT (SGPT) 137 U/L (10-68); BILIRUBIN - TOTAL 2.98 mg/dL (0.2-1.3); CALC OSMOLALITY 264 mosm/kg (275-300); CALCIUM 7.6 mg/dL (8.5-10.1); CARBON DIOXIDE 23.4 mmol/L (21.0-32.0); CHLORIDE - SERUM 101 mmol/L (98-107); CREATININE - SERUM 0.5 mg/dL (0.6-1.3); GLUCOSE 107 mg/dL (74-106); POTASSIUM - SERUM 3.4 mmol/L (3.5-5.1); PROTEIN - SERUM 5.3 g/dL (6.4-8.2); SODIUM 133 mmol/L (136-145); UREA NITROGEN 9 mg/dL (7-18); eGFR NON AFRICAN AMERICAN > 90 mL/min (90-120)
[2019-06-14 06:26] LABS: HEMATOCRIT 26.1 % (42.0-54.0); HEMOGLOBIN 8.6 g/dL (13.5-17.5); MCH 30.2 pg (26.0-34.0); MCV 91.6 fL (80.0-100.0); MEAN PLATELET VOLUME 10.4 fL (7.4-10.4); RBC 2.85 10x6/uL (4.20-6.10); RDW 18.3 % (11.5-14.5)
[2019-06-14 06:31] LABS: PLATELET COUNT 26 10x3/uL (130-400); WBC 0.4 10x3/uL (4.8-10.8)
[2019-06-14 08:05] VITALS: BP 157/87
--- NOTE | 2019-06-14 08:22 | NUR ---
PT LYING IN BED WITH SPOUSE AT BEDSIDE. RESP EVEN AND UNLABORED. PT REPORTS PAIN 7/10 AT THIS TIME. PAIN MED TO BE ADMINISTERED PER MD ORDERS. IV TO LEFT HAND WITH NS @ 30 ML/HR INFUSING VIA PUMP. SITE WITHOUT REDNESS OR EDEMA. STERI STRIPS X 4 NOTED TO LEFT CHEST WHERE INFUSA PORT IS PLACED. PT DENIES FURTHER NEEDS AT THIS TIME. CL WITHIN REACH. ENCOURAGED TO CALL WITH NEEDS. CONTINUE POC
[2019-06-14 09:24] LABS: ANISOCYTOSIS 1+; BASOPHILS 2 % (0-2); EOSINOPHILS 2 % (0-7); HYPOCHROMASIA OCC; LYMPHOCYTES 50 % (15-50); MONOCYTES 28 % (2-11); NEUTROPHILS 16 % (40-80); PLATELET ESTIMATE DECREASED
[2019-06-14 12:45] VITALS: BP 143/77
[2019-06-14 12:56] LABS: POTASSIUM - SERUM 3.8 mmol/L (3.5-5.1); VANCOMYCIN - TROUGH 4.5 ug/mL (10.0-20.0)
--- NOTE | 2019-06-14 15:12 | NUR ---
Nutrition follow-up: Pt in neutopenic precautions Labs reviewed Wt: 180# Diet: regular PO intake 100% of some meals c/o constipation; miralax and colace started. RDN following.
[2019-06-14 16:17] VITALS: BP 143/75
[2019-06-14 19:30] VITALS: BP 142/87
--- NOTE | 2019-06-14 19:45 | NUR ---
A&O X 4, DENIES N/V. REPORTS ABDOMINAL PAIN OF 8/10. DISTENTION NOTED, PT STATES HE HAS BEEN PASSING GAS FREQUENTLY, BUT NO BOWEL MOVEMENTS SINCE ADMISSION. EDEMA NOTED TO LOWER EXTREMETIES. NO FURTHER NEEDS VOICED. CONTINUE PLAN OF CARE.
[2019-06-15 00:30] VITALS: BP 138/80
[2019-06-15 04:50] VITALS: BP 144/72
[2019-06-15 07:10] LABS: ALBUMIN 2.1 g/dL (3.4-5.0); ALKALINE PHOSPHATASE 223 U/L (46-116); ALT (SGPT) 124 U/L (10-68); BILIRUBIN - TOTAL 2.52 mg/dL (0.2-1.3); CALC OSMOLALITY 261 mosm/kg (275-300); CALCIUM 7.8 mg/dL (8.5-10.1); CARBON DIOXIDE 23.8 mmol/L (21.0-32.0); CHLORIDE - SERUM 98 mmol/L (98-107); CREATININE - SERUM 0.5 mg/dL (0.6-1.3); GLUCOSE 116 mg/dL (74-106); POTASSIUM - SERUM 3.8 mmol/L (3.5-5.1); PROTEIN - SERUM 5.1 g/dL (6.4-8.2); SODIUM 131 mmol/L (136-145); UREA NITROGEN 7 mg/dL (7-18); eGFR NON AFRICAN AMERICAN > 90 mL/min (90-120)
--- NOTE | 2019-06-15 07:30 | NUR ---
PT RESTING IN BED WITH EYES OPEN, AT THE BEDSIDE. IV LOCATED TO LEFT FOREARM W/ VANC RUNNING. NO S/S OF DISTRESS AT THIS TIME, PT DOES REPORT STILL NOT ABLE TO HAVE A BM. DENIES OTHER NEEDS AT THIS TIME, WILL CONT TO MONITOR.
[2019-06-15 07:45] LABS: BASOPHILS 0 % (0-2); EOSINOPHILS 1.6 % (0-7); HEMATOCRIT 25.1 % (42.0-54.0); HEMOGLOBIN 8.3 g/dL (13.5-17.5); LYMPHOCYTES 26.4 % (15-50); MCH 30.1 pg (26.0-34.0); MCHC 33.1 g/dL (31.0-37.0); MCV 90.9 fL (80.0-100.0); MONOCYTES 37.2 % (2-11); NEUTROPHILS 34.8 % (40-80); RBC 2.76 10x6/uL (4.20-6.10); RDW 18.5 % (11.5-14.5)
[2019-06-15 07:47] LABS: PLATELET COUNT 27 10x3/uL (130-400); WBC 1.3 10x3/uL (4.8-10.8)
[2019-06-15 09:19] VITALS: BP 145/82
[2019-06-15 13:53] VITALS: BP 157/79
[2019-06-15 18:05] VITALS: BP 128/68
[2019-06-15 20:52] VITALS: BP 140/83
[2019-06-16 00:30] VITALS: BP 98/72
--- NOTE | 2019-06-16 01:25 | NUR ---
PATIENT IS ALERT AND ORENTED ABLE TO VOICE NEEDS AND WANTS TO STAFF. REMAINS ON NEUTROPENIS ISOLATION. ON ROOM AIR. NS AT 30 TO LEFT FA. NO NEEDS NOTED OR STATED , RESTING .
[2019-06-16 05:26] LABS: ALKALINE PHOSPHATASE 238 U/L (46-116); ALT (SGPT) 150 U/L (10-68); BILIRUBIN - TOTAL 2.16 mg/dL (0.2-1.3); CALC OSMOLALITY 263 mosm/kg (275-300); CALCIUM 7.6 mg/dL (8.5-10.1); CARBON DIOXIDE 23.6 mmol/L (21.0-32.0); CHLORIDE - SERUM 97 mmol/L (98-107); CREATININE - SERUM 0.6 mg/dL (0.6-1.3); GLUCOSE 156 mg/dL (74-106); POTASSIUM - SERUM 3.3 mmol/L (3.5-5.1); PROTEIN - SERUM 5.2 g/dL (6.4-8.2); SODIUM 131 mmol/L (136-145); UREA NITROGEN 8 mg/dL (7-18); eGFR NON AFRICAN AMERICAN > 90 mL/min (90-120)
[2019-06-16 05:30] VITALS: BP 97/64
[2019-06-16 06:02] LABS: BASOPHILS 0.5 % (0-2); EOSINOPHILS 0.3 % (0-7); HEMOGLOBIN 8.5 g/dL (13.5-17.5); IMMATURE GRANULOCYTES 7.8 % (0-5); LYMPHOCYTES 6.8 % (15-50); MCH 29.8 pg (26.0-34.0); MCHC 32.7 g/dL (31.0-37.0); MCV 91.2 fL (80.0-100.0); MONOCYTES 19.2 % (2-11); NEUTROPHILS 65.4 % (40-80); RBC 2.85 10x6/uL (4.20-6.10); RDW 18.9 % (11.5-14.5); WBC 6.1 10x3/uL (4.8-10.8)
[2019-06-16 06:03] LABS: PLATELET COUNT 24 10x3/uL (130-400)
--- NOTE | 2019-06-16 06:13 | NUR ---
CRITICAL PLATELET COUNT OF 24 THIS AM CALL TO DR. Donahue SHE ASK FOR WBC 6.1, HGB 8.5 GIVEN RESULTS FOR EACH. GAVE NO NEW ORDERS.
--- NOTE | 2019-06-16 07:53 | NUR ---
PT RESTING, RR EVEN AND UNLABORED. DENIES NEEDS OR PAIN AT THIS TIME. NEUTRAPENIC PRECAUTIONS IN PLACE. NO SCDs NOTED PER ORDER. BED IN LOWEST POSITION. CALL LIGHT WITHIN REACH. WILL CONTINUE TO MONITOR.
[2019-06-16 08:40] VITALS: BP 161/92
--- NOTE | 2019-06-16 13:19 | NUR ---
PT RESTING, RR EVEN AND UNLABORED. DENIES NEEDS OR PAIN AT THIS TIME.
[2019-06-16 13:45] VITALS: BP 137/60
[2019-06-16 16:56] VITALS: BP 148/65
--- NOTE | 2019-06-16 17:08 | NUR ---
PT RESTING. DENIES NEEDS OR PAIN AT THIS MOMENT. BED IN LOWEST POSITION. CALL LIGHT WITHIN REACH. WILL CONTINUE TO MONITOR.
--- NOTE | 2019-06-16 17:29 | NUR ---
I have reviewed this patient and I concur with the Shift Assessment completed by the Licensed Practical Nurse today this shift.
--- NOTE | 2019-06-16 20:25 | NUR ---
ALERT AND ORIENTED X4. RESP EVEN AND NONLABORED. NONPROD COUGH NOTED. C/O ABD PAIN RATING 8. MEDICATED WITH MORPHINE ORDERED. ABD IS DISTENDED. STATES HE JUST HAD A BM. TELEMETRY SHOWS SR WITH RATE OF 99. DRSG NOTED TO RT GROIN. BRUISES NOTED TO BUE. NS @ 30 MLHR INFUSING IN LT FOREARM. AMBULATORY. SKIN IS JAUNDICED. NO DISTRESS. CL IN REACH.
[2019-06-16 20:58] VITALS: BP 128/65
[2019-06-17] VITALS: BP 117/48
--- NOTE | 2019-06-17 00:50 | NUR ---
MEDICATED WITH MORPHINE FOR C/O ABD PAIN RATING 8. CL IN REACH. STATES HE IS PASSING ALOT OF GAS.
--- NOTE | 2019-06-17 03:25 | NUR ---
MEDICATED WITH TYLENOL PER REQUEST FOR CONT ABD PAIN RATING 4. CL IN REACH.
[2019-06-17 04:00] VITALS: BP 133/83
[2019-06-17 06:39] LABS: ALBUMIN 2.4 g/dL (3.4-5.0); ALKALINE PHOSPHATASE 244 U/L (46-116); ALT (SGPT) 127 U/L (10-68); BILIRUBIN - TOTAL 2.08 mg/dL (0.2-1.3); CALC OSMOLALITY 260 mosm/kg (275-300); CALCIUM 7.6 mg/dL (8.5-10.1); CARBON DIOXIDE 22.2 mmol/L (21.0-32.0); CHLORIDE - SERUM 94 mmol/L (98-107); CREATININE - SERUM 0.6 mg/dL (0.6-1.3); GLUCOSE 198 mg/dL (74-106); POTASSIUM - SERUM 3.7 mmol/L (3.5-5.1); SODIUM 128 mmol/L (136-145); UREA NITROGEN 8 mg/dL (7-18); eGFR NON AFRICAN AMERICAN > 90 mL/min (90-120)
--- NOTE | 2019-06-17 07:00 | NUR ---
ALERT AND ORIENTED, RESTING IN BED. ON NEUTROPENIC PRECAUTIONS. NO C/O PAIN. NO S/S OF ACUTE DISTRESS NOTED. ABDOMEN DISTENDED. IV TO LEFT FOREARM, NS INFUSING @ 30ML/HR. SITE PATENT WITHOUT REDNESS OR SWELLING. PORT TO LEFT CHEST, NOT ACCESSED. ON TELEMETRY SR 96 WITH ELEVATED P-WAVE. DRESSING TO RIGHT GROIN, C/D/I. EDEMA TO BLE. PLATELETS 35 THIS AM. DENIES ANY NEEDS AT THIS TIME. CALL LIGHT IN REACH. WILL CONTINUE TO MONITOR.
[2019-06-17 07:12] LABS: HEMATOCRIT 23.7 % (42.0-54.0); HEMOGLOBIN 7.8 g/dL (13.5-17.5); MCHC 32.9 g/dL (31.0-37.0); MCV 91.2 fL (80.0-100.0); RDW 19.5 % (11.5-14.5); WBC 15.7 10x3/uL (4.8-10.8)
[2019-06-17 07:14] LABS: PLATELET COUNT 35 10x3/uL (130-400)
[2019-06-17 08:55] LABS: BASOPHILS 1 % (0-2); EOSINOPHILS 1 % (0-7); LYMPHOCYTES 15 % (15-50); MONOCYTES 13 % (2-11); NEUTROPHILS 53 % (40-80); PLATELET ESTIMATE DECREASED
[2019-06-17 08:57] LABS: ANISOCYTOSIS OCC; ROULEAUX OCC; TOXIC GRANULATION OCC
[2019-06-17 10:12] VITALS: BP 142/79
[2019-06-17] MEDS ORDERED: GLUCOTROL ER2.5 MG PO (12:46)
[2019-06-17 12:47] VITALS: BP 134/79
--- NOTE | 2019-06-17 13:11 | NUR ---
ONE UNIT OF PRBC VERIFIED AND INFUSION STARTED.
--- NOTE | 2019-06-17 15:55 | NUR ---
UNIT OF PRBC INFUSION COMPLETE.
--- NOTE | 2019-06-17 18:56 | NUR ---
ALERT AND ORIENTED, RESTING IN BED EYES CLOSED. RESPIRATIONS EVEN AND UNLABORED. AROUSES TO VOICE. NO C/O PAIN. NO S/S OF ACUTE DISTRESS NOTED. DENIES ANY NEEDS AT THIS TIME. CALL LIGHT IN REACH. WILL CONTINUE TO MONITOR.
[2019-06-17 20:00] VITALS: BP 135/65
--- NOTE | 2019-06-17 20:00 | NUR ---
SITTING UP ON SIDE OF BED. ALERT AND ORIENTED X4. RESP NONLABORED. EDEMA NOTED TO BLE. AMBULATORY. REPORTS ABD PAIN 7. MEDICATED WITH MORPHINE. TELEMETRY SHOWS ST WITH RATE OF 101. NS @ 30 MLHR INFUSING IN LT HAND. BRUISES NOTED TO BUE. VADIM NOTED TO RT GROIN. STATES HE HAS HAD SEVERAL BMS TODAY AND IS REFUSING CHRONULAC.
--- NOTE | 2019-06-18 00:30 | NUR ---
MEDICATED WITH MORPHINE FOR C/O ABD PAIN. CL IN REACH.
--- NOTE | 2019-06-18 01:18 | NUR ---
AMBULATING IN HALLWAY. STATES HE HAS ONLY SLEPT 30 MINUTES. WENT TO [facility]ENDING MACHINE TO GET SNACK.
[2019-06-18 04:00] VITALS: BP 133/68
[2019-06-18 06:17] LABS: HEMATOCRIT 25.6 % (42.0-54.0); HEMOGLOBIN 8.6 g/dL (13.5-17.5); MCH 30.2 pg (26.0-34.0); MCHC 33.6 g/dL (31.0-37.0); MCV 89.8 fL (80.0-100.0); RBC 2.85 10x6/uL (4.20-6.10); RDW 19.5 % (11.5-14.5)
[2019-06-18 06:19] LABS: MEAN PLATELET VOLUME 9.6 fL (7.4-10.4); PLATELET COUNT 33 10x3/uL (130-400)
[2019-06-18 06:29] LABS: ALBUMIN 2.9 g/dL (3.4-5.0); ALKALINE PHOSPHATASE 261 U/L (46-116); ALT (SGPT) 119 U/L (10-68); CALC OSMOLALITY 260 mosm/kg (275-300); CALCIUM 8.1 mg/dL (8.5-10.1); CARBON DIOXIDE 23.5 mmol/L (21.0-32.0); CHLORIDE - SERUM 95 mmol/L (98-107); CREATININE - SERUM 0.6 mg/dL (0.6-1.3); POTASSIUM - SERUM 3.5 mmol/L (3.5-5.1); PROTEIN - SERUM 5.5 g/dL (6.4-8.2); SODIUM 130 mmol/L (136-145); UREA NITROGEN 7 mg/dL (7-18); eGFR NON AFRICAN AMERICAN > 90 mL/min (90-120)
[2019-06-18 06:31] LABS: GLUCOSE 139 mg/dL (74-106)
[2019-06-18 07:18] LABS: BASOPHILS 3 % (0-2); LYMPHOCYTES 9 % (15-50); MONOCYTES 5 % (2-11); NEUTROPHILS 76 % (40-80)
[2019-06-18 07:19] LABS: PLATELET ESTIMATE DECREASED; POIKILOCYTOSIS OCC; POLYCHROMASIA OCC; TARGET CELLS 1+
--- NOTE | 2019-06-18 08:39 | NUR ---
PATIENT RECIEVED FROM PREVIOUS NURSE RESTING IN BED WITH EYES CLOSED. NO NEEDS VOICED. DENIES PAIN. CL IN REACH
[2019-06-18 08:49] VITALS: BP 144/83
--- NOTE | 2019-06-18 09:29 | NUR ---
NUTRITION F/U PT REPORTS TOLERATING REG DIET WITH IMPROVING PO INTAKE. BM X 3 RECORDED YESTERDAY. WILL CONTINUE TO PROVIDE DIET, HONOR FOOD PREFERENCES, MONITOR PO INTAKE. RD FOLLOWING
--- NOTE | 2019-06-18 09:54 | MORECARE ---
CASE MANAGEMENT DISCHARGE SUMMARY PATIENT: JANI TREJO UNIT: [id number] ADM DATE: 06/10/19 AGE: 59 : 64 SEX: M ROOM/BED: D.2211 AUTHOR: ASHLIE KIRKPATRICK PHYSICIAN: REFERRING PHYSICIAN: MAC WALLACE DO DATE OF SERVICE: 06/18/19 Discharge Plan Patient Name: [facility]ANI [facility]REJO [facility] [facility] 1960 Planned Disposition: Home Anticipated Discharge Date: Discharge Date: Expected LOS: Initial Reviewer: [email or web address] Initial Review Date: 06/18/2019 Generated: 06/18/19 10:54 am DCPIA - Discharge Planning Initial Assessment Updated by [email or web address]: Connie Mckay on 06/18/19 9:53 am * Is the patient Alert and Oriented? Yes * How many steps to enter\exit or inside your home? 0/2 * PCP Dr. Wallace * Pharmacy [facility] on [address] * Preadmission Environment Home with Family * ADLs Independent * Equipment CPAP * Other Equipment CPAP from [facility] * List name and contact numbers for known caregivers / representatives who currently or will assist patient after discharge: Orin Beltre - [facility] other - [phone] * Verbal permission to speak to the caregivers and representatives has been obtained from the patient. Yes * Community resources currently utilized None * Additional services required to return to the preadmission environment? No * Can the patient safely return to the preadmission environment? Yes * Has this patient been hospitalized within the prior 30 days at any hospital? No Patient Name: JANI TREJO Page [id number] at 0954 All edits/amendments must be made on the electronic document DICTATION DATE: 06/18/19953 BELL ATTENDANT: DAVID 06/18/19953 RPT#: [id number] DC DATE: STATUS: ADM IN [facility] [address] [place] [address] END OF REPORT
--- NOTE | 2019-06-18 10:01 | MORECARE ---
CASE MANAGEMENT DISCHARGE SUMMARY PATIENT: JANI TREJO UNIT: [id number] ADM DATE: 06/10/19 AGE: 59 : 64 SEX: M ROOM/BED: D.2211 AUTHOR: ASHLIE KIRKPATRICK PHYSICIAN: REFERRING PHYSICIAN: MAC WALLACE DO DATE OF SERVICE: 06/18/19 Discharge Plan Patient Name: JANI TREJO Facility: [facility]:[place] : 1960 Planned Disposition: Home Anticipated Discharge Date: Discharge Date: Expected LOS: Initial Reviewer: [email or web address] Initial Review Date: 06/18/2019 Generated: 06/18/19 11:01 am Comments DCP- Discharge Planning Updated by [email or web address]: Connie Mckay on 06/18/19 8:[address] Patient Name: JANI TREJO Admission Status: Urgent Accout number: [id number] Admission Date: 06-10-2019 : 1960 Admission Diagnosis: Attending: MAC WALLACE Current LOS: 8 Anticipated DC Date: Planned Disposition: Home Primary Insurance: BLUE CROSS TRUE BLUE PPO Discharge Planning Comments: CM met with patient to complete initial dc planning assessment. CM educated patient on the CM role and verbal consent given by patient to complete assessment. Patient lives at home with his significant other (Orin). At discharge patient plans to return and feels this is a safe discharge. CM discussed availability of home health, rehab services, and medical equipment. Patient denied known discharge needs at this time. States Orin will transport him home on discharge. CM will continue to follow and will assist as needed with dc plans/needs. [place]: Connie Mckay DCPIA - Discharge Planning Initial Assessment Updated by [email or web address]: Connie Mckay on 06/18/19 9:53 am * Is the patient Alert and Oriented? Yes * How many steps to enter\exit or inside your home? 0/2 * PCP Dr. Wallace * [facility] [address] * Preadmission Environment Home with Family * ADLs Independent * Equipment CPAP * Other Equipment CPAP from [facility] * List name and contact numbers for known caregivers / representatives who currently or will assist patient after discharge: Orin Patt - Significant other - [phone] * Verbal permission to speak to the caregivers and representatives has been obtained from the patient. Yes * Community resources currently utilized None * Additional services required to return to the preadmission environment? No * Can the patient safely return to the preadmission environment? Yes * Has this patient been hospitalized within the prior 30 days at any hospital? No Last DP export: 06/18/19 8:54 am Patient Name: JANI TREJO Page [phone] at 1001 All edits/amendments must be made on the electronic document DICTATION DATE: 06/18/19 1001 ENDO TECH: DAVID 06/18/19 1001 RPT#: [id number] DC DATE: STATUS: ADM IN [facility] [address] [place] [address] END OF REPORT
[2019-06-18 12:49] VITALS: BP 155/86
[2019-06-18 17:50] VITALS: BP 143/84
--- NOTE | 2019-06-18 18:51 | NUR ---
PATIENT RESTING IN BED WITH NO NEEDS VOICED. CL IN REACH
[2019-06-18 20:00] VITALS: BP 138/74
--- NOTE | 2019-06-18 20:10 | NUR ---
PT SITTING UP ON SIDE OF BED WITHOUT DISTRESS, AOX4. IV LEFT HAND INFUSING NS @ 30. STATES PAIN IN ABD 12/23, GAVE MORPHINE ORDERED. DENIES OTHER NEEDS AT THIS TIME. CL IN REACH, WILL CTM
[2019-06-19 04:00] VITALS: BP 132/76
[2019-06-19 06:17] LABS: BASOPHILS 0.3 % (0-2); EOSINOPHILS 0.1 % (0-7); HEMATOCRIT 24.7 % (42.0-54.0); HEMOGLOBIN 8.2 g/dL (13.5-17.5); IMMATURE GRANULOCYTES 10.1 % (0-5); LYMPHOCYTES 4.2 % (15-50); MCHC 33.2 g/dL (31.0-37.0); MCV 90.5 fL (80.0-100.0); MEAN PLATELET VOLUME 10.3 fL (7.4-10.4); MONOCYTES 14.4 % (2-11); NEUTROPHILS 70.9 % (40-80); RBC 2.73 10x6/uL (4.20-6.10); RDW 19.5 % (11.5-14.5)
[2019-06-19 06:18] LABS: PLATELET COUNT 41 10x3/uL (130-400)
[2019-06-19 06:28] LABS: ALBUMIN 3.1 g/dL (3.4-5.0); ALKALINE PHOSPHATASE 266 U/L (46-116); ALT (SGPT) 109 U/L (10-68); CALC OSMOLALITY 253 mosm/kg (275-300); CARBON DIOXIDE 25.2 mmol/L (21.0-32.0); CHLORIDE - SERUM 92 mmol/L (98-107); CREATININE - SERUM 0.5 mg/dL (0.6-1.3); GLUCOSE 144 mg/dL (74-106); POTASSIUM - SERUM 3.6 mmol/L (3.5-5.1); PROTEIN - SERUM 5.6 g/dL (6.4-8.2); SODIUM 126 mmol/L (136-145); UREA NITROGEN 7 mg/dL (7-18); eGFR NON AFRICAN AMERICAN > 90 mL/min (90-120)
--- NOTE | 2019-06-19 09:00 | NUR ---
ALERT AND ORIENTED X4 WITH ABDOMEN SOFT WITH SLIGHT GENERALIZED TENDERNESS. BOWEL SOUNDS NOTED X4. PEDAL PULSES NOTED. MORPHINE GIVEN GOR GENERALIZED ABDOMINAL PAIN. IV TO LEFT HAND INFUSING AT PRESCRIBED RATE. TELEMETRY INTACT. ENCOURAED TO USE4 CALL LIGHT FOR ASSSIST.
[2019-06-19] MEDS ORDERED: ELIQUIS5 MG PO (10:28)
[2019-06-19] MEDS ORDERED: MIRALAX17 GM PO (10:28)
--- NOTE | 2019-06-19 12:22 | NUR ---
IV DISCONTINUED AND VERBALIZED UNDERSTANDING OF DISCHARGE INSTRUCTIONS. STABLE AT TIME OF DEPARTURE VIA W/C VIA POV.
--- NOTE | 2019-06-20 10:37 | MORECARE ---
CASE MANAGEMENT DISCHARGE SUMMARY PATIENT: JANI TREJO UNIT: [id number] ADM DATE: 06/10/19 AGE: 59 : 64 SEX: M ROOM/BED: D.2211 AUTHOR: ASHLIE KIRKPATRICK PHYSICIAN: REFERRING PHYSICIAN: MAC WALLACE DO DATE OF SERVICE: 06/20/19 Discharge Plan Patient Name: JANI TREJO Facility: [facility]:[place] : 1960 Planned Disposition: Home Anticipated Discharge Date: Discharge Date: 06/19/2019 Expected LOS: Initial Reviewer: [email or web address] Initial Review Date: 06/18/2019 Generated: 06/20/19 11:37 am Comments DCP- Discharge Planning Updated by [email or web address]: Connie Mckay on 06/18/19 8:[address] Patient Name: JANI TREJO Admission Status: Urgent Accout number: [id number] Admission Date: 06-10-2019 : 1960 Admission Diagnosis: Attending: MAC WALLACE Current LOS: 8 Anticipated DC Date: Planned Disposition: Home Primary Insurance: BLUE CROSS TRUE BLUE PPO Discharge Planning Comments: CM met with patient to complete initial dc planning assessment. CM educated patient on the CM role and verbal consent given by patient to complete assessment. Patient lives at home with his significant other (Orin). At discharge patient plans to return and feels this is a safe discharge. CM discussed availability of home health, rehab services, and medical equipment. Patient denied known discharge needs at this time. States Orin will transport him home on discharge. CM will continue to follow and will assist as needed with dc plans/needs. Backend Python Developer: Connie Mckay DCPIA - Discharge Planning Initial Assessment Updated by [email or web address]: Connie Mckay on 06/18/19 9:53 am * Is the patient Alert and Oriented? Yes * How many steps to enter\exit or inside your home? 0/2 * PCP Dr. Wallace * Pharmacy [facility] [address] * Preadmission Environment Home with Family * ADLs Independent * Equipment CPAP * Other Equipment CPAP from [facility] * List name and contact numbers for known caregivers / representatives who currently or will assist patient after discharge: Orin Beltre - Significant other - [phone] * Verbal permission to speak to the caregivers and representatives has been obtained from the patient. Yes * Community resources currently utilized None * Additional services required to return to the preadmission environment? No * Can the patient safely return to the preadmission environment? Yes * Has this patient been hospitalized within the prior 30 days at any hospital? No Last DP export: 06/18/19 9:01 am Patient Name: JANI TREJO Page [id number] at 1037 All edits/amendments must be made on the electronic document DICTATION DATE: 06/20/19 1037 VETERINARY TECHNICIAN INSTRUCTOR: DAVID 06/20/19 [employer] RPT#: [id number] DC DATE:06/19/19 STATUS: DIS IN [facility] [address] [place] [address] END OF REPORT
== END 2019-06-19 12:23 | disposition home or self-care (01) | DRG 802 ==
LOC: D.MS 16:10 → D.EDHOLD 16:10 → D.MS 16:18
PROVIDERS: Emergency Medicine; Internal Medicine Nephrology; Radiology Diagnostic Radiology; ADMIT Family Medicine; ATTEND Family Medicine
PROC: 06H03DZ Insertion of Intraluminal Device into Inferior Vena Cava, Percutaneous Approach (ICD-10-PCS; principal; 2019-06-11 11:38)
DX: D68.32 Hemorrhagic disorder due to extrinsic circulating anticoagulants (principal); D61.810 Antineoplastic chemotherapy induced pancytopenia; C78.00 Secondary malignant neoplasm of unspecified lung; D62 Acute posthemorrhagic anemia; E87.1 Hypo-osmolality and hyponatremia; D69.59 Other secondary thrombocytopenia; C80.1 Malignant (primary) neoplasm, unspecified; E87.6 Hypokalemia; E11.65 Type 2 diabetes mellitus with hyperglycemia; G47.33 Obstructive sleep apnea (adult) (pediatric)

== ENCOUNTER 2019-08-06 12:07 | Inpatient (IN) | payer BC ==
[~2019-08-06] VITALS: Ht 175.3 cm; Wt 90.7 kg
[~2019-08-06 12:07] MED LIST changes: +GLUCOTROL ER2.5 MG PO; +MIRALAX17 GM PO
[2019-08-06 12:49] LABS: BASOPHILS 0.1 % (0-2); EOSINOPHILS 0 % (0-7); HEMATOCRIT 36.9 % (42.0-54.0); HEMOGLOBIN 11.9 g/dL (13.5-17.5); IMMATURE GRANULOCYTES 0.7 % (0-5); LYMPHOCYTES 1.5 % (15-50); MCH 33.1 pg (26.0-34.0); MCHC 32.2 g/dL (31.0-37.0); MCV 102.5 fL (80.0-100.0); MEAN PLATELET VOLUME 11.4 fL (7.4-10.4); MONOCYTES 7.7 % (2-11); RDW 22.8 % (11.5-14.5); WBC 12.1 10x3/uL (4.8-10.8)
[2019-08-06 12:50] LABS: PLATELET COUNT 69 10x3/uL (130-400)
[2019-08-06 13:09] LABS: INR 1.32 (0.85-1.17); PROTIME 16.2 SECONDS (11.6-15.0)
[2019-08-06 13:17] VITALS: BP 141/80
[2019-08-06 13:24] LABS: ALKALINE PHOSPHATASE 309 U/L (30-120); ALT (SGPT) 145 U/L (10-68); AMYLASE - SERUM 45 U/L (25-115); BILIRUBIN - TOTAL 8.38 mg/dL (0.2-1.3); CHLORIDE - SERUM 105 mmol/L (98-107); CREATININE - SERUM 0.8 mg/dL (0.6-1.3); LIPASE 216 U/L (73-393); PRO BNP 299 pg/mL (0-125); PROTEIN - SERUM 5.7 g/dL (6.4-8.2); SODIUM 144 mmol/L (136-145); UREA NITROGEN 27 mg/dL (7-18); eGFR NON AFRICAN AMERICAN > 90 mL/min (90-120)
[2019-08-06 13:28] LABS: CALC OSMOLALITY 299 mosm/kg (275-300); GLUCOSE 235 mg/dL (74-106); PLATELET ESTIMATE DECREASED
[2019-08-06 13:30] LABS: POTASSIUM - SERUM 2.8 mmol/L (3.5-5.1)
[2019-08-06 13:30] LABS: BILIRUBIN NEGATIVE (NEGATIVE); GLUCOSE NEGATIVE (NEGATIVE); KETONE NEGATIVE (NEGATIVE); NITRITE NEGATIVE (NEGATIVE); UROBILINOGEN NORMAL (NORMAL)
[2019-08-06 17:16] VITALS: BP 114/65; BMI 29.6
[2019-08-06] MEDS ORDERED: ELIQUIS2.5 MG PO (17:18)
[2019-08-06] MEDS ORDERED: PHENERGAN25 M1 PO (17:22)
[2019-08-06] MEDS ORDERED: RESTORIL15 MG PO (17:22)
[2019-08-06] MEDS ORDERED: K-DUR20 MEQ PO (17:23)
[2019-08-06] MEDS ORDERED: FUROSEMIDE40 MG PO (17:25)
[2019-08-06] MEDS ORDERED: ZOFRAN ODT4 MG/UDTAB PO (17:26)
[2019-08-06 18:11] LABS: % SATURATION 46 % (15-55); IRON 79 ug/dl (35-150); TOTAL IRON BIND CAPACITY 170 ug/dl (260-445); UNSAT IRON BIND CAPACITY 91 ug/dl (150-375)
[2019-08-06 18:51] LABS: MAGNESIUM - SERUM 1.7 mg/dL (1.8-2.4)
[2019-08-06 20:00] VITALS: BP 112/65
[2019-08-06 21:09] LABS: GLUCOSE NEGATIVE (NEGATIVE); KETONE NEGATIVE (NEGATIVE); NITRITE NEGATIVE (NEGATIVE)
[2019-08-06 21:10] LABS: BILIRUBIN 1+ (NEGATIVE); UROBILINOGEN NORMAL (NORMAL)
[2019-08-07 04:00] VITALS: BP 107/63
[2019-08-07 06:34] LABS: BASOPHILS 0.1 % (0-2); EOSINOPHILS 0 % (0-7); HEMOGLOBIN 12.5 g/dL (13.5-17.5); IMMATURE GRANULOCYTES 0.7 % (0-5); LYMPHOCYTES 4.6 % (15-50); MCH 33.1 pg (26.0-34.0); MCHC 32.1 g/dL (31.0-37.0); MCV 103.2 fL (80.0-100.0); MONOCYTES 8.1 % (2-11); NEUTROPHILS 86.5 % (40-80); PLATELET COUNT 69 10x3/uL (130-400); RBC 3.78 10x6/uL (4.20-6.10); RDW 23.3 % (11.5-14.5); WBC 13.7 10x3/uL (4.8-10.8)
[2019-08-07 06:53] LABS: ALBUMIN 2.9 g/dL (3.4-5.0); ALKALINE PHOSPHATASE 319 U/L (30-120); ALT (SGPT) 157 U/L (10-68); BILIRUBIN - TOTAL 9.97 mg/dL (0.2-1.3); CARBON DIOXIDE 24.5 mmol/L (21.0-32.0); CHLORIDE - SERUM 103 mmol/L (98-107); CREATININE - SERUM 0.8 mg/dL (0.6-1.3); MAGNESIUM - SERUM 1.9 mg/dL (1.8-2.4); PROTEIN - SERUM 5.4 g/dL (6.4-8.2); SODIUM 142 mmol/L (136-145); UREA NITROGEN 32 mg/dL (7-18); eGFR NON AFRICAN AMERICAN > 90 mL/min (90-120)
[2019-08-07 06:54] LABS: CALC OSMOLALITY 292 mosm/kg (275-300); GLUCOSE 154 mg/dL (74-106); POTASSIUM - SERUM 3.7 mmol/L (3.5-5.1)
[2019-08-07 07:27] LABS: PLATELET ESTIMATE DECREASED
[2019-08-07 08:28] VITALS: BP 126/82
[2019-08-07 10:28] VITALS: BMI 29.5
[2019-08-07 11:01] VITALS: Ht 175.3 cm; Wt 90.7 kg
[2019-08-07 14:07] VITALS: BP 113/75
[2019-08-07 16:19] VITALS: BP 96/46
[2019-08-08] VITALS (14 sets, daily range): BP systolic 78–202; BP diastolic 37–185
[2019-08-08 06:32] LABS: ALBUMIN 2.8 g/dL (3.4-5.0); ANION GAP 18.8 mmol/L (8-16); BILIRUBIN - TOTAL 11.42 mg/dL (0.2-1.3); CARBON DIOXIDE 23.9 mmol/L (21.0-32.0); MAGNESIUM - SERUM 2.1 mg/dL (1.8-2.4); PHOSPHOROUS 2.5 mg/dL (2.5-4.9); POTASSIUM - SERUM 3.7 mmol/L (3.5-5.1); PROTEIN - SERUM 5.1 g/dL (6.4-8.2)
[2019-08-08 06:34] LABS: CREATININE - SERUM 1.2 mg/dL (0.6-1.3)
[2019-08-08 06:37] LABS: BASOPHILS 0.1 % (0-2); EOSINOPHILS 0 % (0-7); HEMATOCRIT 38.2 % (42.0-54.0); HEMOGLOBIN 12.2 g/dL (13.5-17.5); IMMATURE GRANULOCYTES 0.7 % (0-5); LYMPHOCYTES 2.5 % (15-50); MCH 32.9 pg (26.0-34.0); MCHC 31.9 g/dL (31.0-37.0); MEAN PLATELET VOLUME 10.6 fL (7.4-10.4); MONOCYTES 8.2 % (2-11); NEUTROPHILS 88.5 % (40-80); PLATELET COUNT 62 10x3/uL (130-400); RBC 3.71 10x6/uL (4.20-6.10); RDW 23.2 % (11.5-14.5); WBC 13.3 10x3/uL (4.8-10.8)
[2019-08-08 07:19] LABS: APTT 30.6 SECONDS (22.8-39.4); INR 1.31 (0.85-1.17); PROTIME 16.1 SECONDS (11.6-15.0)
[2019-08-09] VITALS: BP 108/52
[2019-08-09 04:00] VITALS: BP 87/45
[2019-08-09 04:59] LABS: HEMATOCRIT 39.7 % (42.0-54.0); HEMOGLOBIN 12.7 g/dL (13.5-17.5); MCV 103.1 fL (80.0-100.0); MEAN PLATELET VOLUME 10.2 fL (7.4-10.4); PLATELET COUNT 67 10x3/uL (130-400); RBC 3.85 10x6/uL (4.20-6.10); RDW 23.4 % (11.5-14.5)
[2019-08-09 05:00] LABS: WBC 17.8 10x3/uL (4.8-10.8)
[2019-08-09 05:07] LABS: ALBUMIN 2.7 g/dL (3.4-5.0); BILIRUBIN - TOTAL 14.32 mg/dL (0.2-1.3); CALCIUM 9.7 mg/dL (8.5-10.1); MAGNESIUM - SERUM 2.3 mg/dL (1.8-2.4); PROTEIN - SERUM 5.4 g/dL (6.4-8.2)
[2019-08-09 05:22] LABS: ANION GAP 29.3 mmol/L (8-16); CARBON DIOXIDE 15.3 mmol/L (21.0-32.0); PHOSPHOROUS 4.2 mg/dL (2.5-4.9); POTASSIUM - SERUM 4.6 mmol/L (3.5-5.1)
[2019-08-09 07:22] LABS: LYMPHOCYTES 3 % (15-50); MONOCYTES 5 % (2-11); NEUTROPHILS 89 % (40-80); PLATELET ESTIMATE DECREASED
[2019-08-09 09:31] VITALS: BP 105/57
[2019-08-09 10:53] LABS: BILIRUBIN 2+ (NEGATIVE); GLUCOSE NEGATIVE (NEGATIVE); KETONE NEGATIVE (NEGATIVE); NITRITE NEGATIVE (NEGATIVE); SPECIFIC GRAVITY 1.025 (1.005-1.020); UROBILINOGEN NORMAL (NORMAL)
[2019-08-09 10:54] LABS: WHITE CELLS - URINE 0-5 /hpf (NEGATIVE)
[2019-08-09 10:57] LABS: BACTERIA FEW /hpf (NEGATIVE); EPITHELIAL CELLS NSEEN /hpf (0-5); HYALINE CAST 0-5 /lpf (NONE SEEN); RED CELLS - URINE NONE SEEN /hpf (0-5)
[2019-08-09 10:58] LABS: GRANULAR CAST 0-5 /lpf (NONE SEEN)
[2019-08-09 14:22] VITALS: BP 90/47
[2019-08-09 17:16] VITALS: BP 101/52
[2019-08-09 20:00] VITALS: BP 101/51
[2019-08-10] VITALS: BP 80/44
[2019-08-10 04:00] VITALS: BP 78/38
[2019-08-10 05:30] VITALS: BP 82/44
[2019-08-10 06:37] LABS: APTT 49.6 SECONDS (22.8-39.4); INR 2.68 (0.85-1.17); PROTIME 28.1 SECONDS (11.6-15.0)
[2019-08-10 06:39] LABS: ALBUMIN 2.3 g/dL (3.4-5.0); BILIRUBIN - TOTAL 14.66 mg/dL (0.2-1.3); CALCIUM 8.4 mg/dL (8.5-10.1); PROTEIN - SERUM 4.7 g/dL (6.4-8.2)
[2019-08-10 06:42] LABS: HEMATOCRIT 35.9 % (42.0-54.0); HEMOGLOBIN 11.1 g/dL (13.5-17.5); MCH 33.2 pg (26.0-34.0); MCHC 30.9 g/dL (31.0-37.0); MCV 107.5 fL (80.0-100.0); RBC 3.34 10x6/uL (4.20-6.10); RDW 23.5 % (11.5-14.5); WBC 21.9 10x3/uL (4.8-10.8)
[2019-08-10 06:43] LABS: MEAN PLATELET VOLUME 9.9 fL (7.4-10.4); PLATELET COUNT 53 10x3/uL (130-400)
[2019-08-10 06:49] LABS: MAGNESIUM - SERUM 2.9 mg/dL (1.8-2.4)
[2019-08-10 06:50] LABS: ANION GAP 36.8 mmol/L (8-16); CREATININE - SERUM 3.4 mg/dL (0.6-1.3); PHOSPHOROUS 9.8 mg/dL (2.5-4.9)
[2019-08-10 06:58] LABS: POTASSIUM - SERUM 6.8 mmol/L (3.5-5.1)
[2019-08-10 07:44] LABS: ANISOCYTOSIS 1+; LYMPHOCYTES 4 % (15-50); MONOCYTES 4 % (2-11); NEUTROPHILS 88 % (40-80); PLATELET ESTIMATE DECREASED; POIKILOCYTOSIS 1+
--- NOTE | 2019-08-10 08:57 | MORECARE ---
CASE MANAGEMENT DISCHARGE SUMMARY PATIENT: JANI TREJO UNIT: [id number] ADM DATE: 08/06/19 AGE: 59 : 64 SEX: M ROOM/BED: D.2206 AUTHOR: ASHLIE KIRKPATRICK PHYSICIAN: REFERRING PHYSICIAN: MECHE COLLINS MD DATE OF SERVICE: 08/10/19 Discharge Plan Patient Name: [facility]ANI [facility]REOJ [facility] [facility] 1960 Planned Disposition: Hospice Medical Facility Anticipated Discharge Date: Discharge Date: Expected LOS: Initial Reviewer: [email or web address] Initial Review Date: 08/10/2019 Generated: 08/10/19 9:56 am Comments DCP- Discharge Planning Updated by [email or web address]: Connie Mckay on 08/10/19 7:[address] Received an order for hospice. I called Orin Beltre listed as contact center assistant, she is his life partner. She states she would like to have [facility] as Dr. Stewart had discussed with her. States "I just want him to get relief." I spoke with Paco Irene, he will be here in 15 minutes. CM will continue to follow and assist with discharge planning/needs. Patient Name: JANI TREJO Page [id number] at 0857 All edits/amendments must be made on the electronic document DICTATION DATE: 08/10/19 0856 CD REACTOR OPERATOR HEAD: DAVID 08/10/19 0856 RPT#: [id number] DC DATE: STATUS: ADM IN [facility] [address] [place] [address] END OF REPORT
--- NOTE | 2019-08-10 09:04 | MORECARE ---
CASE MANAGEMENT DISCHARGE SUMMARY PATIENT: JANI TREJO UNIT: [id number] ADM DATE: 08/06/19 AGE: 59 : 64 SEX: M ROOM/BED: D.2206 AUTHOR: ASHLIE KIRPKATRICK PHYSICIAN: REFERRING PHYSICIAN: MECHE COLLINS MD DATE OF SERVICE: 08/10/19 Discharge Plan Patient Name: [facility]ANI [facility]REJO [facility] [facility] 1960 Planned Disposition: Hospice Medical Facility Anticipated Discharge Date: Discharge Date: Expected LOS: Initial Reviewer: [email or web address] Initial Review Date: 08/10/2019 Generated: 08/10/19 10:04 am Comments DCP- Discharge Planning Updated by [email or web address]: Connie Mckay on 08/10/19 7:[address] Received an order for hospice. I called Orin Beltre listed as contact lens manufacturer, she is his life partner. She states she would like to have [facility] as Dr. Stewart had discussed with her. States "I just want him to get relief." I spoke with Paco Irene, he will be here in 15 minutes. CM will continue to follow and assist with discharge planning/needs. External Providers External Provider: [facility] Next Contact Date: Service Request Date: Service Type: Resolution: Reviewer: Comments: Last DP export: 08/10/19 7:57 a Patient Name: JANI TREJO Page [phone] at 0904 All edits/amendments must be made on the electronic document DICTATION DATE: 08/10/19 0904 WIRE SPLICER: DAVID 08/10/19 0904 RPT#: [id number] DC DATE: STATUS: ADM IN [facility] [address] [place] [address] END OF REPORT
[2019-08-10 09:10] VITALS: BP 65/35
--- NOTE | 2019-08-11 12:39 | MORECARE ---
CASE MANAGEMENT DISCHARGE SUMMARY PATIENT: JANI TREJO UNIT: [id number] ADM DATE: 08/06/19 AGE: 59 : 64 SEX: M ROOM/BED: D.2206 AUTHOR: ASHLIE KIRKPATRICK PHYSICIAN: REFERRING PHYSICIAN: MECHE COLLINS MD DATE OF SERVICE: 08/11/19 Discharge Plan Patient Name: JANI TREJO [facility] [facility] 1960 Planned Disposition: Hospice Medical Facility Anticipated Discharge Date: Discharge Date: 08/10/2019 Expected LOS: 0 Initial Reviewer: [email or web address] Initial Review Date: 08/10/2019 Generated: 08/11/19 1:39 pm Comments DCP- Discharge Planning Updated by [email or web address]: Connie Mckay on 08/10/19 7:[address] Received an order for hospice. I called Orin Beltre listed as cash van salesperson, she is his life partner. She states she would like to have [facility] as Dr. Stewart had discussed with her. States "I just want him to get relief." I spoke with Paco Irene, he will be here in 15 minutes. CM will continue to follow and assist with discharge planning/needs. Last DP export: 08/10/19 8:04 a Patient Name: JANI TREJO Page [phone] at 1239 All edits/amendments must be made on the electronic document DICTATION DATE: 08/11/19 1239 FLY FRAME TENDER: DAVID 08/11/19 1239 RPT#: [id number] DC DATE:08/10/19 STATUS: DIS IN [facility] [address] [place] [address] END OF REPORT
== END 2019-08-10 13:04 | DRG 435 ==
LOC: D.ER 12:07 → D.MS 14:50
PROVIDERS: Family Medicine; General Practice; Internal Medicine Nephrology; Radiology Vascular & Interventional Radiology; ADMIT Family Medicine; ATTEND Family Medicine
PROC: 0W9G30Z Drainage of Peritoneal Cavity with Drainage Device, Percutaneous Approach (ICD-10-PCS; principal; 2019-08-08 12:50)
DX: C78.7 Secondary malignant neoplasm of liver and intrahepatic bile duct (principal); I50.43 Acute on chronic combined systolic (congestive) and diastolic (congestive) heart failure; K72.00 Acute and subacute hepatic failure without coma; G92 Toxic encephalopathy; C34.90 Malignant neoplasm of unspecified part of unspecified bronchus or lung; R18.8 Other ascites; N17.9 Acute kidney failure, unspecified; D70.1 Agranulocytosis secondary to cancer chemotherapy; E87.6 Hypokalemia; D53.9 Nutritional anemia, unspecified; E11.65 Type 2 diabetes mellitus with hyperglycemia; G47.33 Obstructive sleep apnea (adult) (pediatric); R74.0 Nonspecific elevation of levels of transaminase and lactic acid dehydrogenase [LDH]; I10 Essential (primary) hypertension; R57.0 Cardiogenic shock